=== PATIENT | male | born 1945 | race Caucasian/White ===

== ENCOUNTER 2017-01-15 12:44 | Emergency (ER) | payer OTHER ==
[~2017-01-15] VITALS: Ht 182.8 cm; Wt 83.9 kg
[~2017-01-15 12:44] MED LIST: AMOXICILLIN500 MG PO; ANTIBIOTIC O500 U/GM TP; ANUSOL-HC25 MG RC; APAP/OXYCODONE1 TA2 PO; ASPIR-TRIN325 MG PO; ASPIRIN ADULT L81 M1 PO; ASPIRIN CHEWABL81 M1 PO; ASPIRIN81 M1 PO; ATARAX25 MG PO; ATENOLOL25 MG PO; ATIVAN0.5 MG PO; ATIVAN1 MG PO; B-1100 MG PO; B12,B-12,B 12500 MC1 PO; BACTRIM DS 8001 TA1 PO; BACTROBAN OINT22 GM PO; CELEXA20 MG PO; CELEXA40 MG PO; CEPHALEXIN500 M1 PO; CIPRO XR500 MG PO; CIPRO250 MG PO; CIPRO500 MG PO; CIPRODEX 0.3%-7.5 ML OT; CITALOPRAM20 MG PO; CLARITIN10 MG PO; CLINDAMYCIN HC300 MG PO; CLINDAMYCIN300 MG PO; DARVOCET N 1001 TAB PO; DAYPRO600 M1 PO; DIFLUCAN100 MG PO; FIORICET 325 MG1 TAB PO; FIORINAL 325 MG1 CAP PO; FLEXERIL10 MG PO; FLEXERIL5 MG PO; FLOMAX0.4 MG PO; FLUCONAZOLE100 MG PO; Feosol300 MG PO; GABAPENTIN300 MG PO; HYDROCODONE BIT1 T11 PO; KEFLEX500 M1 PO; KEFLEX500 MG PO; KENALOG 0.1%80 GM T; LIDODERM 5% PATC1 EA T; LIPITOR40 MG PO; LOPRESSOR25 MG PO; MOTRIN800 MG PO; NEURONTIN300 MG PO; NEURONTIN600 MG PO; NYSTATIN CREAM15 GM T; Nystatin Cream15 GM T; OMEPRAZOLE MAGN20 MG PO; OMEPRAZOLE20 MG PO; PEN-VEE K500 MG PO; PERCOCET 325 MG1 TA2 PO; PERCOCET 325 MG1 TA3 PO; PERCOCET 325 MG1 TA7 PO; PERPHENAZINE4 MG PO; PREDNICOT20 MG PO; PREDNISONE20 MG PO; PREPARATION H R; PRILOSEC10 MG PO; PRILOSEC20 M1 PO; PRILOSEC20 MG PO; PRILOSEC40 MG PO; PROTONIX40 MG PO; ROBAXIN750 MG PO; SINEX NASAL SPRAY NAS; TENORMIN50 MG; TRAMADOL HCL50 MG PO; TRAZADONE HYDR100 MG PO; TRAZODONE150 MG PO; TRAZODONE50 MG PO; TRIMOX500 MG PO; TUCKS R; VIBRAMYCIN100 MG PO; VICODIN 5/500 505 MG PO; VICODIN 500 MG-1 TAB PO; VICODIN ES 7501 TAB PO; VITAMIN D22000 UNIT PO; VOLTAREN50 M1 PO; Vicodin 5/500 505 MG PO; XYLOCAINE35 GM T; ZANTAC 300300 MG PO; ZOFRAN ODT8 MG PO; ZYVOX600 MG PO
[2017-01-15 12:54] VITALS: BP 138/77
[2017-01-15 13:12] LABS: BASO % 0.2 % (0.0-1.0); EOS # 0.2 10*3/uL (0.0-0.4); EOS % 2.3 % (1.0-4.0); HEMATOCRIT 42.4 % (42.0-52.0); HEMOGLOBIN 13.8 g/dl (14.0-18.0); IG # 0.1 10*3/uL (0.0-0.1); LYMPH # 1.2 10*3/uL (1.3-4.4); LYMPH % 13.5 % (27.0-41.0); MEAN CELL VOLUME 90.8 fl (80.0-94.0); MEAN CORPUSCULAR HGB 29.6 pg (27.0-31.0); MEAN CORPUSCULAR HGB CONC 32.5 g/dl (33.0-37.0); MEAN PLATELET VOLUME 9.5 fl (9.6-12.3); MONO # 0.6 10*3/uL (0.1-1.0); NEUT # 6.5 10*3/uL (2.3-7.9); NEUT % 76.3 % (47.0-73.0); PLATELET COUNT AUTOMATED 193 10*3/uL (130-400); RED BLOOD COUNT 4.67 10*6/uL (4.50-5.90); RED CELL DISTRI WIDTH 14.5 % (0-14.5); WHITE BLOOD COUNT 8.6 10*3/uL (4.8-10.8)
[2017-01-15 13:28] LABS: ALBUMIN 3.3 gm/dl (3.1-4.5); ALKALINE PHOSPHATASE 103 U/L (45-117); BILIRUBIN, TOTAL 0.4 mg/dl (0.2-1.0); BUN 17 mg/dl (7-24); CARBON DIOXIDE 27 mmol/L (21-32); CHLORIDE 109 mmol/L (98-107); EST GLOM FILT AFRICAN AMERICAN > 60 ml/min; GLUCOSE 98 mg/dL (65-99); POTASSIUM 3.8 mmol/L (3.5-5.1); SGOT/AST 15 IU/L (3-35); SGPT/ALT 13 U/L (12-78); SODIUM 143 mmol/L (136-145); TOTAL PROTEIN 6.8 gm/dL (6.4-8.2)
== END 2017-01-15 14:36 | disposition home or self-care (01) ==
LOC: ED 12:44
PROVIDERS: Nurse Practitioner Family
DX: S70.01XA Contusion of right hip, initial encounter (principal); F17.200 Nicotine dependence, unspecified, uncomplicated; Z95.5 Presence of coronary angioplasty implant and graft; Z90.49 Acquired absence of other specified parts of digestive tract; Z88.6 Allergy status to analgesic agent; W18.30XA Fall on same level, unspecified, initial encounter; Y93.89 Activity, other specified; Y92.9 Unspecified place or not applicable; Y99.9 Unspecified external cause status

== ENCOUNTER 2017-02-22 16:40 | Emergency (ER) | payer OTHER ==
[2017-02-22 16:40] VITALS: BP 116/85
== END 2017-02-22 18:54 | disposition left against medical advice (07) ==
LOC: ED 16:40
DX: S81.011A Laceration without foreign body, right knee, initial encounter (principal); S50.12XA Contusion of left forearm, initial encounter; F17.200 Nicotine dependence, unspecified, uncomplicated; F41.9 Anxiety disorder, unspecified; I25.10 Atherosclerotic heart disease of native coronary artery without angina pectoris; F32.9 Major depressive disorder, single episode, unspecified; K21.9 Gastro-esophageal reflux disease without esophagitis; Z95.5 Presence of coronary angioplasty implant and graft; Z90.49 Acquired absence of other specified parts of digestive tract; Z88.6 Allergy status to analgesic agent; Z79.899 Other long term (current) drug therapy; W18.30XA Fall on same level, unspecified, initial encounter; Y93.89 Activity, other specified; Y92.9 Unspecified place or not applicable; Y99.9 Unspecified external cause status

== ENCOUNTER 2017-07-01 21:06 | Emergency (ER) | payer OTHER ==
[~2017-07-01] VITALS: Ht 185.4 cm; Wt 81.6 kg
[2017-07-01 21:22] VITALS: BP 135/81
[2017-07-01] MEDS ORDERED: KEFLEX500 M1 PO (22:37)
== END 2017-07-01 23:58 | disposition home or self-care (01) ==
LOC: ED 21:06
DX: S51.822A Laceration with foreign body of left forearm, initial encounter (principal); L03.114 Cellulitis of left upper limb; Z88.6 Allergy status to analgesic agent; Z79.899 Other long term (current) drug therapy; W25.XXXA Contact with sharp glass, initial encounter; Y93.89 Activity, other specified; Y92.89 Other specified places as the place of occurrence of the external cause; Y99.8 Other external cause status

== ENCOUNTER 2017-07-06 08:47 | Emergency (ER) | payer OTHER ==
[~2017-07-06] VITALS: Ht 182.8 cm; Wt 86.2 kg
[2017-07-06 09:01] VITALS: BP 153/92
[2017-07-06] MEDS ORDERED: CEPHALEXIN500 M1 PO (10:43)
== END 2017-07-06 10:54 | disposition home or self-care (01) ==
LOC: ED 08:47
DX: S70.351A Superficial foreign body, right thigh, initial encounter (principal); F17.200 Nicotine dependence, unspecified, uncomplicated; Z90.49 Acquired absence of other specified parts of digestive tract; Z96.651 Presence of right artificial knee joint; Z95.5 Presence of coronary angioplasty implant and graft; Z98.42 Cataract extraction status, left eye; Z98.41 Cataract extraction status, right eye; Z79.899 Other long term (current) drug therapy; Z88.6 Allergy status to analgesic agent; X58.XXXA Exposure to other specified factors, initial encounter; Y93.89 Activity, other specified; Y92.89 Other specified places as the place of occurrence of the external cause; Y99.9 Unspecified external cause status

== ENCOUNTER 2017-07-31 22:02 | Inpatient (IN) | payer OTHER ==
[~2017-07-31] VITALS: Ht 180.3 cm; Wt 63.3 kg
[2017-07-31 22:17] VITALS: BP 166/93
[2017-07-31 22:33] VITALS: BP 152/91
--- NOTE | 2017-07-31 22:33 | NUR ---
PT STATES PAIN WENT FROM 7 TO A 5 OUT OF 10 AFTER 1ST NITRO SL
--- NOTE | 2017-07-31 22:34 | NUR ---
2ND NITRO 0.4 SL ADMINISTERED FOR PAIN /10
[2017-07-31 23:20] LABS: BASO % 0.6 % (0.0-1.0); EOS # 0.2 10*3/uL (0.0-0.4); EOS % 2.7 % (1.0-4.0); HEMATOCRIT 44.3 % (42.0-52.0); HEMOGLOBIN 14.9 g/dl (14.0-18.0); LYMPH # 2.1 10*3/uL (1.3-4.4); LYMPH % 29.4 % (27.0-41.0); MEAN CELL VOLUME 88.8 fl (80.0-94.0); MEAN CORPUSCULAR HGB 29.9 pg (27.0-31.0); MEAN CORPUSCULAR HGB CONC 33.6 g/dl (33.0-37.0); MEAN PLATELET VOLUME 9.7 fl (9.6-12.3); MONO # 0.5 10*3/uL (0.1-1.0); MONO % 7.6 % (3.0-9.0); NEUT # 4.2 10*3/uL (2.3-7.9); NEUT % 59.6 % (47.0-73.0); PLATELET COUNT AUTOMATED 239 10*3/uL (130-400); RED BLOOD COUNT 4.99 10*6/uL (4.50-5.90); RED CELL DISTRI WIDTH 14.5 % (0-14.5)
--- NOTE | 2017-07-31 23:22 | NUR ---
PATIENT STATED AFTER NITRO X 2 PAIN DECREASED TO 1/10
[2017-07-31 23:30] VITALS: BP 119/76
[2017-07-31 23:30] LABS: ACT PARTIAL THROMBO TIME 22.6 SECONDS (20.8-31.5); INTERNATIONAL NORM RATIO 1.1 (2.0-3.5)
[2017-07-31 23:37] LABS: ALBUMIN 3.2 gm/dl (3.1-4.5); ALKALINE PHOSPHATASE 82 U/L (45-117); BUN 14 mg/dl (7-24); CHLORIDE 111 mmol/L (98-107); CREATININE 0.66 mg/dL (0.70-1.30); POTASSIUM 4.1 mmol/L (3.5-5.1); SGOT/AST 10 IU/L (3-35); SGPT/ALT 15 U/L (12-78); SODIUM 144 mmol/L (136-145); TOTAL PROTEIN 6.5 gm/dL (6.4-8.2)
[2017-07-31 23:49] LABS: TROPONIN I < 0.015 ng/ml (<0.045)
--- NOTE | 2017-08-01 01:00 | NUR ---
A 72, admitted to , under the services of ELADIO Belcher DO with a diagnosis of CHEST PAIN. Chief complaint is CHEST PAIN STARTING SINCE YESTERDAY. Patient arrived via stretcher from ER. Monitor applied. Initial assessment completed. Vital signs taken and recorded. ELADIO BELCHER DO notified of admission to the unit. Orders received. See assessment for past medical history, medications and allergies. Patient and/or family oriented to unit. [facility] visitation policy reviewed. Clothing/patient valuable form completed. PATY VALENTE
--- NOTE | 2017-08-01 01:15 | NUR ---
MEDICATION LIST REVIEWED WITH PATIENT . ANTIBIOTICS WERE COMPLETED. PATIENT STATED HE HAS NOT BEEN TAKING VIT D AND B DUE TO BEING OUT OF THEM AND CANNOT AFFORD THEM AT PRESENT TIME
--- NOTE | 2017-08-01 03:00 | NUR ---
BP 120/62 AFTER 1.25 LOPRESSOR 1V.
[2017-08-01 04:30] LABS: BASO # 0.1 10*3/uL (0.0-0.1); BASO % 0.7 % (0.0-1.0); EOS # 0.3 10*3/uL (0.0-0.4); EOS % 3.5 % (1.0-4.0); HEMATOCRIT 42.9 % (42.0-52.0); HEMOGLOBIN 14.5 g/dl (14.0-18.0); LYMPH # 2.4 10*3/uL (1.3-4.4); LYMPH % 32.7 % (27.0-41.0); MEAN CELL VOLUME 88.6 fl (80.0-94.0); MEAN CORPUSCULAR HGB CONC 33.8 g/dl (33.0-37.0); MEAN PLATELET VOLUME 9.5 fl (9.6-12.3); MONO # 0.6 10*3/uL (0.1-1.0); MONO % 8.6 % (3.0-9.0); NEUT % 54.1 % (47.0-73.0); PLATELET COUNT AUTOMATED 221 10*3/uL (130-400); RED BLOOD COUNT 4.84 10*6/uL (4.50-5.90); RED CELL DISTRI WIDTH 14.5 % (0-14.5); WHITE BLOOD COUNT 7.4 10*3/uL (4.8-10.8)
[2017-08-01 04:42] LABS: BUN 15 mg/dl (7-24); CHLORIDE 111 mmol/L (98-107); CREATININE 0.72 mg/dL (0.70-1.30); POTASSIUM 3.8 mmol/L (3.5-5.1); SODIUM 144 mmol/L (136-145)
[2017-08-01 04:46] LABS: CHOLESTEROL 102 mg/dL (<200); HDL CHOLESTEROL 42 mg/dl (40-60); LDL CHOLESTEROL 47 mg/dL (9-159); PHOSPHOROUS 3.2 mg/dL (2.5-4.9); TRIGLYCERIDES 66 mg/dl (<150); VLDL CHOLESTEROL 13 mg/dL (6-40)
[2017-08-01 04:53] LABS: THYROID STIM HORMONE (HS) 0.382 uIU/ml (0.358-4.75)
--- NOTE | 2017-08-01 06:38 | NUR ---
MESSAGE LEFT WITH CARDIOLOGY FOR DR. VIGIL REGARDING CONSULT ORDER.
--- NOTE | 2017-08-01 06:45 | NUR ---
DR. VIGIL RETURNED CALL. NOTIFIED OF CONSULT. STATED TO CALL IF ANY PROBLEMS. WILL BE IN LATER TO SEE PATIENT.
--- NOTE | 2017-08-01 07:45 | NUR ---
Shift chart check completed.
[2017-08-01 08:00] VITALS: BP 138/82
--- NOTE | 2017-08-01 09:25 | NUR ---
PATIENT C/O OF CHEST PAIN. STATED "THEY GAVE ME MORPHINE THE LAST TIME I WAS IN HERE AND IT HELPED." CONTACTED DR. LOPEZ, SEE NEW ORDERS.
--- NOTE | 2017-08-01 09:28 | NUR ---
CALLED [facility] TO VERIFY HOME MEDICATIONS. THE ONLY ONE PATIENT GETS FILLED THERE IS GABAPENTIN 300MG T.I.D. OTHER MEDICATIONS COME [facility] AND THE CLINIC IS CLOSED ON THE WEEKENDS.
--- NOTE | 2017-08-01 10:00 | NUR ---
ONE TIME DOSE OF MORPHINE GIVEN FOR PATIENTS C/O CHEST PAIN 05/14. WILL MONITOR.
--- NOTE | 2017-08-01 10:45 | NUR ---
MORPHINE EFFECTIVE, PATIENT SATISFIED.
[2017-08-01 12:00] VITALS: BP 118/90
--- NOTE | 2017-08-01 14:41 | NUR ---
SPOKE WITH DR. LOPEZ PER PATIENT REQUEST FOR SOMETHING FOR ANXIETY. HE SAID "IM JUMPING OUT OF MY SKIN AND GOING CRAZY IN HERE!"
--- NOTE | 2017-08-01 15:10 | NUR ---
SL NITROSTAT GIVEN FOR PATIENT C/O CHEST PAIN RATED 4/10. ONE TIME DOSE VISTARIL GIVEN FOR PATIENTS C/O ANXIETY. WILL MONITOR.
--- NOTE | 2017-08-01 15:15 | NUR ---
SL NITROSTAT EFFECTIVE. PATIENT STATES HE DOESN'T HAVE ANY CHEST PAIN.
[2017-08-01 16:00] VITALS: BP 90/57
--- NOTE | 2017-08-01 16:52 | NUR ---
SPOKE WITH DR. LOPEZ REGARDING PATIENTS CONTINUED C/O ANXIETY, THE NEED FOR NICOTINE PATCH, AND MORPHINE FOR PAIN. SEE NEW ORDERS.
--- NOTE | 2017-08-01 17:45 | NUR ---
PRN MORPHINE GIVEN FOR C/O ANXIETY THAT LEADS TO INCREASE CHEST PAIN. WILL MONITOR.
--- NOTE | 2017-08-01 18:15 | NUR ---
MORPHINE EFFECTIVE. PATIENT ASLEEP WITH RESPIRATIONS >12
[2017-08-01 20:00] VITALS: BP 99/56
--- NOTE | 2017-08-01 23:55 | NUR ---
PATIENT C/O CHEST PAIN AND INABILITY TO RELAX AND SLEEP. PATIENT RATING PAIN A 4/10 WITH 10 BEING THE WORST. STATING PAIN COMES AND GOES. DENIES NEED FOR VISARIL 0R NITRO. PATIENT MEDICATED WITH MORPHINE PER PATIENT REQUEST. REINFORCED USE OF CALL LIGHT. WILL CONTINUE TO MONITOR.
[2017-08-02] VITALS: BP 94/64
[2017-08-02 06:27] LABS: BASO # 0.1 10*3/uL (0.0-0.1); BASO % 0.6 % (0.0-1.0); EOS # 0.3 10*3/uL (0.0-0.4); EOS % 3.7 % (1.0-4.0); HEMATOCRIT 40.5 % (42.0-52.0); HEMOGLOBIN 13.6 g/dl (14.0-18.0); LYMPH # 2.9 10*3/uL (1.3-4.4); LYMPH % 32.6 % (27.0-41.0); MEAN CELL VOLUME 89.6 fl (80.0-94.0); MEAN CORPUSCULAR HGB 30.1 pg (27.0-31.0); MEAN CORPUSCULAR HGB CONC 33.6 g/dl (33.0-37.0); MEAN PLATELET VOLUME 9.6 fl (9.6-12.3); MONO # 0.7 10*3/uL (0.1-1.0); MONO % 7.8 % (3.0-9.0); NEUT # 4.8 10*3/uL (2.3-7.9); NEUT % 54.7 % (47.0-73.0); PLATELET COUNT AUTOMATED 203 10*3/uL (130-400); RED BLOOD COUNT 4.52 10*6/uL (4.50-5.90); RED CELL DISTRI WIDTH 14.5 % (0-14.5); WHITE BLOOD COUNT 8.7 10*3/uL (4.8-10.8)
[2017-08-02 06:56] LABS: ALBUMIN 2.8 gm/dl (3.1-4.5); ALKALINE PHOSPHATASE 74 U/L (45-117); BUN 21 mg/dl (7-24); CHLORIDE 110 mmol/L (98-107); CREATININE 0.77 mg/dL (0.70-1.30); POTASSIUM 4.1 mmol/L (3.5-5.1); SGOT/AST 8 IU/L (3-35); SGPT/ALT 13 U/L (12-78); SODIUM 140 mmol/L (136-145); TOTAL PROTEIN 5.9 gm/dL (6.4-8.2)
--- NOTE | 2017-08-02 07:45 | NUR ---
PT YELLING & DEMANDING "MY MORPHINE" WHEN QUESTIONED REGARDING PAIN, PT POINTS TO MIDSTERNAL CHEST. NO S.O.B NOTED. PT DENIES NAUSEA STATING "I ORDERED BREAKFAST OVER AN HOUR AGO, WHY IS THIS PLACE SO SLOW" PT IS IN OBVIOUS DISTRESS, VSS & CHARTED. MEDICATED IV SLOWLY ORDERED PER PT REQUEST WITH MORPHINE, PT RATES PAIN /10. SEE EMAR.
[2017-08-02 08:00] VITALS: BP 118/76
--- NOTE | 2017-08-02 09:30 | NUR ---
PT STATES MEDICATION EFFECTIVE, DOZING INTERMITTENTLY. WILL CONTINUE TO MONITOR.
[2017-08-02 12:00] VITALS: BP 141/72
--- NOTE | 2017-08-02 12:30 | NUR ---
DR VIGIL IN TO SEE PT.
--- NOTE | 2017-08-02 13:01 | NUR ---
PT AMBULATORY IN HALLS WITH CRUTCHES.
[2017-08-02] MEDS ORDERED: TOPROL XL50 M1 PO (14:19)
[2017-08-02] MEDS ORDERED: IMDUR SA60 M1 PO (14:19)
[2017-08-02] MEDS ORDERED: ASPIRIN ADULT L81 M2 PO (14:19)
[2017-08-02] MEDS ORDERED: ATORVASTATIN CA40 M1 PO (14:19)
[2017-08-02] MEDS ORDERED: ATARAX,VISTARIL50 MG PO (14:19)
== END 2017-08-02 15:10 | disposition home or self-care (01) | DRG 880 ==
LOC: ED 22:02 → EDHOLD 08-01 00:05 → 5E 08-01 00:12
PROVIDERS: Internal Medicine; Student in an Organized Health Care Education/Training Program; ADMIT Internal Medicine
DX: F41.9 Anxiety disorder, unspecified (principal); E44.1 Mild protein-calorie malnutrition; E87.8 Other disorders of electrolyte and fluid balance, not elsewhere classified; E11.9 Type 2 diabetes mellitus without complications; Z68.1 Body mass index [BMI] 19.9 or less, adult; K21.9 Gastro-esophageal reflux disease without esophagitis; E83.41 Hypermagnesemia; R07.89 Other chest pain; I10 Essential (primary) hypertension; I25.118 Atherosclerotic heart disease of native coronary artery with other forms of angina pectoris; F43.10 Post-traumatic stress disorder, unspecified; G47.00 Insomnia, unspecified; E78.5 Hyperlipidemia, unspecified; E78.00 Pure hypercholesterolemia, unspecified; Z96.651 Presence of right artificial knee joint; F32.9 Major depressive disorder, single episode, unspecified; Z82.49 Family history of ischemic heart disease and other diseases of the circulatory system; Z72.0 Tobacco use; Z71.6 Tobacco abuse counseling; Z79.899 Other long term (current) drug therapy; Z88.8 Allergy status to other drugs, medicaments and biological substances; Z98.61 Coronary angioplasty status; Z89.612 Acquired absence of left leg above knee; Z98.42 Cataract extraction status, left eye; Z98.41 Cataract extraction status, right eye; Z90.49 Acquired absence of other specified parts of digestive tract; Z82.3 Family history of stroke; Z83.3 Family history of diabetes mellitus

== ENCOUNTER 2017-08-21 15:19 | Inpatient (IN) | payer OTHER ==
[~2017-08-21] VITALS: Ht 182.8 cm; Wt 63.6 kg
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
[~2017-08-21 15:19] MED LIST changes: +ASPIRIN ADULT L81 M2 PO; +ATARAX,VISTARIL50 MG PO; +ATORVASTATIN CA40 M1 PO; +IMDUR SA60 M1 PO; +TOPROL XL50 M1 PO
[2017-08-21 15:31] VITALS: BP 144/93
[2017-08-21 15:37] LABS: BASO % 0.4 % (0.0-1.0); EOS # 0.1 10*3/uL (0.0-0.4); EOS % 0.6 % (1.0-4.0); HEMATOCRIT 45.4 % (42.0-52.0); HEMOGLOBIN 15.7 g/dl (14.0-18.0); LYMPH # 1.5 10*3/uL (1.3-4.4); LYMPH % 16.9 % (27.0-41.0); MEAN CELL VOLUME 86.3 fl (80.0-94.0); MEAN CORPUSCULAR HGB 29.8 pg (27.0-31.0); MEAN CORPUSCULAR HGB CONC 34.6 g/dl (33.0-37.0); MEAN PLATELET VOLUME 9.2 fl (9.6-12.3); MONO # 0.4 10*3/uL (0.1-1.0); NEUT # 6.9 10*3/uL (2.3-7.9); NEUT % 77.8 % (47.0-73.0); PLATELET COUNT AUTOMATED 302 10*3/uL (130-400); RED BLOOD COUNT 5.26 10*6/uL (4.50-5.90); RED CELL DISTRI WIDTH 13.5 % (0-14.5); WHITE BLOOD COUNT 8.9 10*3/uL (4.8-10.8)
[2017-08-21 15:46] LABS: ACT PARTIAL THROMBO TIME 24.5 SECONDS (20.8-31.5); INTERNATIONAL NORM RATIO 1.1 (2.0-3.5)
[2017-08-21 15:54] LABS: ALBUMIN 3.6 gm/dl (3.1-4.5); ALKALINE PHOSPHATASE 99 U/L (45-117); BUN 13 mg/dl (7-24); CHLORIDE 105 mmol/L (98-107); CREATININE 0.89 mg/dL (0.70-1.30); POTASSIUM 3.6 mmol/L (3.5-5.1); SGOT/AST 11 IU/L (3-35); SGPT/ALT 20 U/L (12-78); SODIUM 138 mmol/L (136-145); TOTAL PROTEIN 7.4 gm/dL (6.4-8.2)
[2017-08-21 15:55] LABS: TROPONIN I < 0.015 ng/ml (<0.045)
[2017-08-21 16:49] VITALS: BP 165/89
[2017-08-21 20:00] VITALS: BP 148/81
[2017-08-22] VITALS: BP 118/75
[2017-08-22 06:01] LABS: BASO % 0.7 % (0.0-1.0); EOS # 0.3 10*3/uL (0.0-0.4); EOS % 4.3 % (1.0-4.0); HEMATOCRIT 42.4 % (42.0-52.0); HEMOGLOBIN 14.4 g/dl (14.0-18.0); LYMPH # 2.1 10*3/uL (1.3-4.4); LYMPH % 35.1 % (27.0-41.0); MEAN CELL VOLUME 87.8 fl (80.0-94.0); MEAN CORPUSCULAR HGB 29.8 pg (27.0-31.0); MEAN PLATELET VOLUME 9.5 fl (9.6-12.3); MONO # 0.4 10*3/uL (0.1-1.0); NEUT # 3.2 10*3/uL (2.3-7.9); NEUT % 52.6 % (47.0-73.0); PLATELET COUNT AUTOMATED 264 10*3/uL (130-400); RED BLOOD COUNT 4.83 10*6/uL (4.50-5.90); RED CELL DISTRI WIDTH 13.8 % (0-14.5); WHITE BLOOD COUNT 6.1 10*3/uL (4.8-10.8)
[2017-08-22 06:29] LABS: ALBUMIN 2.9 gm/dl (3.1-4.5); ALKALINE PHOSPHATASE 88 U/L (45-117); BUN 19 mg/dl (7-24); CHLORIDE 107 mmol/L (98-107); CHOLESTEROL 118 mg/dL (<200); CREATININE 0.77 mg/dL (0.70-1.30); HDL CHOLESTEROL 46 mg/dl (40-60); LDL CHOLESTEROL 50 mg/dL (9-159); PHOSPHOROUS 4.4 mg/dL (2.5-4.9); POTASSIUM 3.8 mmol/L (3.5-5.1); SGOT/AST 11 IU/L (3-35); SGPT/ALT 17 U/L (12-78); SODIUM 142 mmol/L (136-145); TOTAL PROTEIN 6.4 gm/dL (6.4-8.2); TRIGLYCERIDES 109 mg/dl (<150); VLDL CHOLESTEROL 22 mg/dL (6-40)
[2017-08-22 06:32] LABS: ACT PARTIAL THROMBO TIME 24.5 SECONDS (20.8-31.5); INTERNATIONAL NORM RATIO 1.1 (2.0-3.5)
[2017-08-22 08:00] VITALS: BP 120/68
[2017-08-22 12:00] VITALS: BP 100/60
[2017-08-22 16:00] VITALS: BP 95/54
== END 2017-08-22 17:19 | disposition short-term general hospital (02) | DRG 303 ==
LOC: ED 15:19 → EDHOLD 15:56 → 5E 16:28
PROVIDERS: Emergency Medicine; Registered Nurse; ADMIT Internal Medicine
DX: I25.110 Atherosclerotic heart disease of native coronary artery with unstable angina pectoris (principal); E83.41 Hypermagnesemia; Z89.612 Acquired absence of left leg above knee; E78.5 Hyperlipidemia, unspecified; I10 Essential (primary) hypertension; K21.9 Gastro-esophageal reflux disease without esophagitis; F17.210 Nicotine dependence, cigarettes, uncomplicated; F41.9 Anxiety disorder, unspecified; Z96.651 Presence of right artificial knee joint; F32.9 Major depressive disorder, single episode, unspecified; G47.00 Insomnia, unspecified; F43.10 Post-traumatic stress disorder, unspecified; Z98.42 Cataract extraction status, left eye; Z98.41 Cataract extraction status, right eye; Z90.49 Acquired absence of other specified parts of digestive tract; Z82.3 Family history of stroke; Z82.49 Family history of ischemic heart disease and other diseases of the circulatory system; Z95.818 Presence of other cardiac implants and grafts; I25.2 Old myocardial infarction; Z79.899 Other long term (current) drug therapy; Z88.8 Allergy status to other drugs, medicaments and biological substances; Z72.89 Other problems related to lifestyle; Z79.82 Long term (current) use of aspirin; Z71.6 Tobacco abuse counseling

== ENCOUNTER 2017-11-29 10:52 | Inpatient (IN) | payer OTHER ==
[~2017-11-29] VITALS: Ht 185.4 cm; Wt 65.6 kg
[2017-11-29 10:57] VITALS: BP 176/89
[2017-11-29 11:30] LABS: BASO % 0.2 % (0.0-1.0); EOS # 0.1 10*3/uL (0.0-0.4); EOS % 0.4 % (1.0-4.0); HEMATOCRIT 50.6 % (42.0-52.0); LYMPH # 1.5 10*3/uL (1.3-4.4); LYMPH % 12.2 % (27.0-41.0); MEAN CELL VOLUME 86.2 fl (80.0-94.0); MEAN CORPUSCULAR HGB CONC 33.6 g/dl (33.0-37.0); MEAN PLATELET VOLUME 9.3 fl (9.6-12.3); MONO # 0.3 10*3/uL (0.1-1.0); MONO % 2.8 % (3.0-9.0); NEUT # 10.4 10*3/uL (2.3-7.9); PLATELET COUNT AUTOMATED 301 10*3/uL (130-400); RED BLOOD COUNT 5.87 10*6/uL (4.50-5.90); RED CELL DISTRI WIDTH 14.3 % (0-14.5); WHITE BLOOD COUNT 12.3 10*3/uL (4.8-10.8)
[2017-11-29 11:45] LABS: ALKALINE PHOSPHATASE 88 U/L (45-117); BUN 11 mg/dl (7-24); CHLORIDE 107 mmol/L (98-107); CREATININE 0.84 mg/dL (0.70-1.30); POTASSIUM 3.9 mmol/L (3.5-5.1); SGOT/AST 14 IU/L (3-35); SGPT/ALT 20 U/L (12-78); SODIUM 140 mmol/L (136-145); TOTAL PROTEIN 7.9 gm/dL (6.4-8.2)
[2017-11-29 11:53] VITALS: BP 168/89
[2017-11-29 12:10] LABS: LIPASE 95 U/L (73-393)
[2017-11-29 14:20] VITALS: BP 163/86
[2017-11-29 16:00] VITALS: BP 111/56; BP 154/85
[2017-11-29 18:22] LABS: BILIRUBIN NEGATIVE (NEGATIVE); BLOOD NEGATIVE (NEGATIVE); CLARITY CLEAR (CLEAR); COLOR YELLOW (YELLOW); GLUCOSE NEGATIVE (NEGATIVE); KETONE TRACE (NEGATIVE); LEUKO ESTERASE NEGATIVE (NEGATIVE); NITRITE NEGATIVE (NEGATIVE); UROBILINOGEN 0.2 E.U./dl (0.2-1.0)
[2017-11-29 18:29] LABS: WBC 0-2 wbc/hpf (0-5)
[2017-11-29 20:00] VITALS: BP 146/73
[2017-11-30] VITALS: BP 136/74
[2017-11-30 06:03] LABS: ALKALINE PHOSPHATASE 66 U/L (45-117); BUN 8 mg/dl (7-24); CHLORIDE 110 mmol/L (98-107); CHOLESTEROL 112 mg/dL (<200); CREATININE 0.69 mg/dL (0.70-1.30); HDL CHOLESTEROL 44 mg/dl (40-60); LDL CHOLESTEROL 58 mg/dL (9-159); PHOSPHOROUS 2.6 mg/dL (2.5-4.9); POTASSIUM 3.5 mmol/L (3.5-5.1); SGOT/AST 9 IU/L (3-35); SGPT/ALT 17 U/L (12-78); SODIUM 141 mmol/L (136-145); TRIGLYCERIDES 52 mg/dl (<150); VLDL CHOLESTEROL 10 mg/dL (6-40)
[2017-11-30 06:08] LABS: THYROID STIM HORMONE (HS) 0.864 uIU/ml (0.358-4.75)
[2017-11-30 06:11] LABS: BASO % 0.4 % (0.0-1.0); EOS # 0.2 10*3/uL (0.0-0.4); EOS % 2.7 % (1.0-4.0); HEMATOCRIT 40.4 % (42.0-52.0); HEMOGLOBIN 13.9 g/dl (14.0-18.0); LYMPH # 2.6 10*3/uL (1.3-4.4); MEAN CELL VOLUME 86.3 fl (80.0-94.0); MEAN CORPUSCULAR HGB 29.7 pg (27.0-31.0); MEAN CORPUSCULAR HGB CONC 34.4 g/dl (33.0-37.0); MEAN PLATELET VOLUME 9.5 fl (9.6-12.3); MONO # 0.7 10*3/uL (0.1-1.0); MONO % 7.8 % (3.0-9.0); NEUT # 4.8 10*3/uL (2.3-7.9); NEUT % 57.6 % (47.0-73.0); PLATELET COUNT AUTOMATED 249 10*3/uL (130-400); RED BLOOD COUNT 4.68 10*6/uL (4.50-5.90); RED CELL DISTRI WIDTH 14.4 % (0-14.5); WHITE BLOOD COUNT 8.3 10*3/uL (4.8-10.8)
[2017-11-30 06:20] LABS: ACT PARTIAL THROMBO TIME 22.5 SECONDS (20.8-31.5); INTERNATIONAL NORM RATIO 1.1 (2.0-3.5)
[2017-11-30 08:00] VITALS: BP 133/78
[2017-11-30 08:10] LABS: VITAMIN D, 25-HYDROXY 19.2 ng/mL (30-100)
[2017-11-30] MEDS ORDERED: ALKA-SELTZER H1 EAC1 PO (10:15)
[2017-11-30] MEDS ORDERED: FLONASE ALLERG9.9 ML NAS (10:16)
[2017-11-30 12:00] VITALS: BP 147/80
[2017-11-30 16:00] VITALS: BP 148/79
[2017-11-30 20:00] VITALS: BP 113/70
[2017-12-01] VITALS: BP 122/75
[2017-12-01] MEDS ORDERED: TENORMIN50 MG PO (02:34)
[2017-12-01 07:09] LABS: BASO % 0.6 % (0.0-1.0); EOS # 0.3 10*3/uL (0.0-0.4); EOS % 4.9 % (1.0-4.0); HEMATOCRIT 41.6 % (42.0-52.0); HEMOGLOBIN 13.8 g/dl (14.0-18.0); LYMPH # 2.1 10*3/uL (1.3-4.4); LYMPH % 30.9 % (27.0-41.0); MEAN CELL VOLUME 86.7 fl (80.0-94.0); MEAN CORPUSCULAR HGB 28.8 pg (27.0-31.0); MEAN CORPUSCULAR HGB CONC 33.2 g/dl (33.0-37.0); MEAN PLATELET VOLUME 9.8 fl (9.6-12.3); MONO # 0.5 10*3/uL (0.1-1.0); MONO % 7.5 % (3.0-9.0); NEUT # 3.8 10*3/uL (2.3-7.9); NEUT % 55.7 % (47.0-73.0); PLATELET COUNT AUTOMATED 225 10*3/uL (130-400); RED CELL DISTRI WIDTH 14.3 % (0-14.5); WHITE BLOOD COUNT 6.8 10*3/uL (4.8-10.8)
[2017-12-01 07:28] LABS: ALBUMIN 2.8 gm/dl (3.1-4.5); ALKALINE PHOSPHATASE 67 U/L (45-117); CHLORIDE 111 mmol/L (98-107); CREATININE 0.68 mg/dL (0.70-1.30); POTASSIUM 3.6 mmol/L (3.5-5.1); SGOT/AST 10 IU/L (3-35); SGPT/ALT 15 U/L (12-78); SODIUM 143 mmol/L (136-145); TOTAL PROTEIN 5.6 gm/dL (6.4-8.2)
[2017-12-01 07:34] LABS: BUN 9 mg/dl (7-24)
[2017-12-01 08:00] VITALS: BP 160/80
[2017-12-01 12:00] VITALS: BP 127/66
== END 2017-12-01 15:22 | disposition home or self-care (01) | DRG 392 ==
LOC: ED 10:52 → 5E 13:37 → EDHOLD 13:37 → 5E 13:41
PROVIDERS: Family Medicine; Internal Medicine; Registered Nurse
DX: R11.2 Nausea with vomiting, unspecified (principal); I50.30 Unspecified diastolic (congestive) heart failure; K76.89 Other specified diseases of liver; I11.0 Hypertensive heart disease with heart failure; Z83.3 Family history of diabetes mellitus; E86.0 Dehydration; K52.9 Noninfective gastroenteritis and colitis, unspecified; N28.1 Cyst of kidney, acquired; R73.9 Hyperglycemia, unspecified; E27.9 Disorder of adrenal gland, unspecified; K29.70 Gastritis, unspecified, without bleeding; K21.9 Gastro-esophageal reflux disease without esophagitis; F43.10 Post-traumatic stress disorder, unspecified; F41.9 Anxiety disorder, unspecified; F32.9 Major depressive disorder, single episode, unspecified; Z96.651 Presence of right artificial knee joint; F17.210 Nicotine dependence, cigarettes, uncomplicated; H26.9 Unspecified cataract; G89.29 Other chronic pain; G47.00 Insomnia, unspecified; I25.10 Atherosclerotic heart disease of native coronary artery without angina pectoris; E78.5 Hyperlipidemia, unspecified; K57.30 Diverticulosis of large intestine without perforation or abscess without bleeding; D35.02 Benign neoplasm of left adrenal gland; D35.01 Benign neoplasm of right adrenal gland; E53.8 Deficiency of other specified B group vitamins; E55.9 Vitamin D deficiency, unspecified; Z72.89 Other problems related to lifestyle; Z89.612 Acquired absence of left leg above knee; Z89.522 Acquired absence of left knee; Z87.19 Personal history of other diseases of the digestive system; Z88.8 Allergy status to other drugs, medicaments and biological substances; Z79.899 Other long term (current) drug therapy; Z87.828 Personal history of other (healed) physical injury and trauma; Z90.49 Acquired absence of other specified parts of digestive tract; Z82.49 Family history of ischemic heart disease and other diseases of the circulatory system; Z82.3 Family history of stroke; Z95.5 Presence of coronary angioplasty implant and graft

== ENCOUNTER 2017-12-02 00:53 | Emergency (ER) | payer OTHER ==
[~2017-12-02] VITALS: Ht 172.7 cm; Wt 79.4 kg
[~2017-12-02 00:53] MED LIST changes: +ALKA-SELTZER H1 EAC1 PO; +FLONASE ALLERG9.9 ML NAS; +TENORMIN50 MG PO
[2017-12-02 01:05] VITALS: BP 159/85
[2017-12-02 01:44] LABS: BASO % 0.3 % (0.0-1.0); EOS % 0.4 % (1.0-4.0); HEMOGLOBIN 16.1 g/dl (14.0-18.0); LYMPH % 10.7 % (27.0-41.0); MEAN CELL VOLUME 86.3 fl (80.0-94.0); MEAN CORPUSCULAR HGB 28.8 pg (27.0-31.0); MEAN CORPUSCULAR HGB CONC 33.3 g/dl (33.0-37.0); MEAN PLATELET VOLUME 9.5 fl (9.6-12.3); MONO # 0.4 10*3/uL (0.1-1.0); NEUT # 7.8 10*3/uL (2.3-7.9); NEUT % 84.3 % (47.0-73.0); PLATELET COUNT AUTOMATED 248 10*3/uL (130-400); WHITE BLOOD COUNT 9.2 10*3/uL (4.8-10.8)
[2017-12-02 01:46] LABS: HEMATOCRIT 48.3 % (42.0-52.0)
[2017-12-02 02:00] LABS: ALBUMIN 3.7 gm/dl (3.1-4.5); ALKALINE PHOSPHATASE 86 U/L (45-117); BUN 9 mg/dl (7-24); CHLORIDE 105 mmol/L (98-107); CREATININE 0.76 mg/dL (0.70-1.30); LIPASE 89 U/L (73-393); POTASSIUM 3.5 mmol/L (3.5-5.1); SGOT/AST 13 IU/L (3-35); SGPT/ALT 19 U/L (12-78); SODIUM 138 mmol/L (136-145); TOTAL PROTEIN 7.5 gm/dL (6.4-8.2)
[2017-12-02 02:05] LABS: TROPONIN I < 0.015 ng/ml (<0.045)
[2017-12-02 03:52] LABS: BILIRUBIN NEGATIVE (NEGATIVE); BLOOD NEGATIVE (NEGATIVE); CLARITY CLEAR (CLEAR); COLOR YELLOW (YELLOW); GLUCOSE NEGATIVE (NEGATIVE); KETONE 1+ (NEGATIVE); LEUKO ESTERASE NEGATIVE (NEGATIVE); NITRITE NEGATIVE (NEGATIVE); PH 6.5 (5.0-9.0); UROBILINOGEN 0.2 E.U./dl (0.2-1.0)
[2017-12-02 04:00] LABS: WBC 0-2 wbc/hpf (0-5)
[2017-12-02 04:01] LABS: URINE AMPHETAMINES < 1000 (1000ng/ml); URINE BARBITURATES < 200 (200ng/ml); URINE BENZODIAZEPINES < 200 (200ng/ml); URINE CANNABINOIDS (THC) < 50 (50ng/ml); URINE COCAINE < 300 (300ng/ml); URINE METHADONE < 300 (300ng/ml); URINE OPIATES > 300 (300ng/ml)
[2017-12-02 04:02] LABS: URINE PHENCYCLIDINE < 25 (25ng/ml)
== END 2017-12-02 05:05 | disposition home or self-care (01) ==
LOC: ED 00:53 → 4E 04:05 → ED 05:05
PROVIDERS: Emergency Medicine Emergency Medical Services
DX: R10.13 Epigastric pain (principal); R11.2 Nausea with vomiting, unspecified; R73.9 Hyperglycemia, unspecified; D72.829 Elevated white blood cell count, unspecified; I25.10 Atherosclerotic heart disease of native coronary artery without angina pectoris; K21.9 Gastro-esophageal reflux disease without esophagitis; E78.5 Hyperlipidemia, unspecified; I50.30 Unspecified diastolic (congestive) heart failure; I11.0 Hypertensive heart disease with heart failure; Z88.6 Allergy status to analgesic agent; Z79.899 Other long term (current) drug therapy

== ENCOUNTER 2018-02-02 21:57 | Emergency (ER) | payer OTHER ==
[~2018-02-02] VITALS: Wt 79.4 kg
[2018-02-02 23:00] VITALS: BP 126/81
[2018-02-02 23:15] LABS: BASO % 0.5 % (0.0-1.0); EOS # 0.2 10*3/uL (0.0-0.4); EOS % 2.6 % (1.0-4.0); HEMOGLOBIN 15.1 g/dl (14.0-18.0); LYMPH # 1.7 10*3/uL (1.3-4.4); LYMPH % 20.5 % (27.0-41.0); MEAN CELL VOLUME 88.1 fl (80.0-94.0); MEAN CORPUSCULAR HGB 29.5 pg (27.0-31.0); MEAN CORPUSCULAR HGB CONC 33.6 g/dl (33.0-37.0); MEAN PLATELET VOLUME 9.4 fl (9.6-12.3); MONO # 0.6 10*3/uL (0.1-1.0); MONO % 6.9 % (3.0-9.0); NEUT # 5.9 10*3/uL (2.3-7.9); NEUT % 69.1 % (47.0-73.0); PLATELET COUNT AUTOMATED 239 10*3/uL (130-400); RED BLOOD COUNT 5.11 10*6/uL (4.50-5.90); RED CELL DISTRI WIDTH 13.7 % (0-14.5); WHITE BLOOD COUNT 8.5 10*3/uL (4.8-10.8)
[2018-02-02 23:18] LABS: INTERNATIONAL NORM RATIO 1.1 (2.0-3.5)
[2018-02-02 23:25] LABS: ALBUMIN 3.4 gm/dl (3.1-4.5); ALKALINE PHOSPHATASE 86 U/L (45-117); BUN 15 mg/dl (7-24); CHLORIDE 107 mmol/L (98-107); CREATININE 0.78 mg/dL (0.70-1.30); LIPASE 67 U/L (73-393); POTASSIUM 3.9 mmol/L (3.5-5.1); SGOT/AST 16 IU/L (3-35); SGPT/ALT 21 U/L (12-78); SODIUM 140 mmol/L (136-145)
[2018-02-02 23:28] LABS: TROPONIN I < 0.015 ng/ml (<0.045)
== END 2018-02-03 00:50 | disposition home or self-care (01) ==
LOC: ED 21:57
PROVIDERS: Emergency Medicine Emergency Medical Services
DX: S31.31XA Laceration without foreign body of scrotum and testes, initial encounter (principal); R10.13 Epigastric pain; F17.200 Nicotine dependence, unspecified, uncomplicated; I25.10 Atherosclerotic heart disease of native coronary artery without angina pectoris; K21.9 Gastro-esophageal reflux disease without esophagitis; E78.5 Hyperlipidemia, unspecified; I11.0 Hypertensive heart disease with heart failure; I50.9 Heart failure, unspecified; Z95.5 Presence of coronary angioplasty implant and graft; Z96.651 Presence of right artificial knee joint; Z90.49 Acquired absence of other specified parts of digestive tract; Z98.890 Other specified postprocedural states; Z79.899 Other long term (current) drug therapy; Z79.82 Long term (current) use of aspirin; Z88.6 Allergy status to analgesic agent; X58.XXXA Exposure to other specified factors, initial encounter; Y93.89 Activity, other specified; Y92.89 Other specified places as the place of occurrence of the external cause; Y99.9 Unspecified external cause status

== ENCOUNTER 2018-03-08 20:24 | Inpatient (IN) | payer OTHER ==
[~2018-03-08] VITALS: Ht 182.8 cm; Wt 63.7 kg
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
[2018-03-08 20:28] VITALS: BP 190/91
[2018-03-08 21:42] LABS: HEMOGLOBIN 16.1 g/dl (14.0-18.0); MEAN CELL VOLUME 87.5 fl (80.0-94.0); MEAN CORPUSCULAR HGB CONC 34.3 g/dl (33.0-37.0); MEAN PLATELET VOLUME 9.7 fl (9.6-12.3); PLATELET COUNT AUTOMATED 260 10*3/uL (130-400); RED BLOOD COUNT 5.37 10*6/uL (4.50-5.90); RED CELL DISTRI WIDTH 14.1 % (0-14.5); WHITE BLOOD COUNT 13.7 10*3/uL (4.8-10.8)
[2018-03-08 22:00] LABS: ALKALINE PHOSPHATASE 95 U/L (45-117); BUN 11 mg/dl (7-24); CHLORIDE 110 mmol/L (98-107); LIPASE 109 U/L (73-393); POTASSIUM 3.8 mmol/L (3.5-5.1); SGOT/AST 15 IU/L (3-35); SGPT/ALT 15 U/L (12-78); SODIUM 142 mmol/L (136-145); TOTAL PROTEIN 7.7 gm/dL (6.4-8.2)
[2018-03-08 22:09] LABS: PLATELET SUFFICIENCY NORMAL (NORMAL); TOTAL CELLS COUNTED 100 #CELLS
[2018-03-08 22:55] LABS: BILIRUBIN NEGATIVE (NEGATIVE); BLOOD NEGATIVE (NEGATIVE); CLARITY CLEAR (CLEAR); COLOR YELLOW (YELLOW); GLUCOSE TRACE (NEGATIVE); KETONE 2+ (NEGATIVE); LEUKO ESTERASE NEGATIVE (NEGATIVE); NITRITE NEGATIVE (NEGATIVE); PH 7.5 (5.0-9.0); UROBILINOGEN 0.2 E.U./dl (0.2-1.0)
[2018-03-08 23:07] LABS: URINE AMPHETAMINES < 1000 (1000ng/ml); URINE BARBITURATES < 200 (200ng/ml); URINE BENZODIAZEPINES < 200 (200ng/ml); URINE CANNABINOIDS (THC) < 50 (50ng/ml); URINE COCAINE < 300 (300ng/ml); URINE METHADONE < 300 (300ng/ml); URINE OPIATES < 300 (300ng/ml)
[2018-03-08 23:12] LABS: URINE PHENCYCLIDINE < 25 (25ng/ml)
[2018-03-08 23:24] LABS: BACTERIA TRACE; MUCOUS 2+
[2018-03-08 23:50] VITALS: BP 145/74
[2018-03-09] VITALS (7 sets, daily range): BP systolic 126–168; BP diastolic 69–83
[2018-03-09 06:30] LABS: BASO % 0.1 % (0.0-1.0); HEMATOCRIT 44.6 % (42.0-52.0); HEMOGLOBIN 14.8 g/dl (14.0-18.0); LYMPH # 0.8 10*3/uL (1.3-4.4); LYMPH % 8.1 % (27.0-41.0); MEAN CELL VOLUME 88.1 fl (80.0-94.0); MEAN CORPUSCULAR HGB 29.2 pg (27.0-31.0); MEAN CORPUSCULAR HGB CONC 33.2 g/dl (33.0-37.0); MEAN PLATELET VOLUME 9.8 fl (9.6-12.3); MONO # 0.4 10*3/uL (0.1-1.0); MONO % 3.8 % (3.0-9.0); NEUT # 8.1 10*3/uL (2.3-7.9); NEUT % 87.5 % (47.0-73.0); PLATELET COUNT AUTOMATED 232 10*3/uL (130-400); RED BLOOD COUNT 5.06 10*6/uL (4.50-5.90); RED CELL DISTRI WIDTH 14.1 % (0-14.5); WHITE BLOOD COUNT 9.3 10*3/uL (4.8-10.8)
[2018-03-09 06:56] LABS: ACT PARTIAL THROMBO TIME 20.7 SECONDS (20.8-31.5)
[2018-03-09] MEDS ORDERED: PRAZOSIN HCL1 MG PO (06:56)
[2018-03-09 06:57] LABS: ALBUMIN 3.7 gm/dl (3.1-4.5); ALKALINE PHOSPHATASE 86 U/L (45-117); BUN 9 mg/dl (7-24); CHLORIDE 110 mmol/L (98-107); CREATININE 0.67 mg/dL (0.70-1.30); PHOSPHOROUS 2.5 mg/dL (2.5-4.9); POTASSIUM 3.4 mmol/L (3.5-5.1); SGOT/AST 12 IU/L (3-35); SGPT/ALT 17 U/L (12-78); SODIUM 144 mmol/L (136-145); TOTAL PROTEIN 6.9 gm/dL (6.4-8.2)
[2018-03-09] MEDS ORDERED: SINUS NAS (06:57)
[2018-03-09 07:01] LABS: ETHYL ALCOHOL < 3.0 mg/dl (<3)
[2018-03-10] VITALS: BP 122/69
[2018-03-10 06:03] LABS: BASO % 0.4 % (0.0-1.0); EOS # 0.1 10*3/uL (0.0-0.4); EOS % 1.4 % (1.0-4.0); HEMATOCRIT 41.7 % (42.0-52.0); HEMOGLOBIN 13.7 g/dl (14.0-18.0); LYMPH # 1.9 10*3/uL (1.3-4.4); LYMPH % 20.1 % (27.0-41.0); MEAN CELL VOLUME 89.7 fl (80.0-94.0); MEAN CORPUSCULAR HGB 29.5 pg (27.0-31.0); MEAN CORPUSCULAR HGB CONC 32.9 g/dl (33.0-37.0); MEAN PLATELET VOLUME 9.7 fl (9.6-12.3); MONO # 0.8 10*3/uL (0.1-1.0); MONO % 8.7 % (3.0-9.0); NEUT # 6.4 10*3/uL (2.3-7.9); PLATELET COUNT AUTOMATED 208 10*3/uL (130-400); RED BLOOD COUNT 4.65 10*6/uL (4.50-5.90); RED CELL DISTRI WIDTH 14.3 % (0-14.5); WHITE BLOOD COUNT 9.2 10*3/uL (4.8-10.8)
[2018-03-10 06:15] LABS: ALBUMIN 2.8 gm/dl (3.1-4.5); BUN 14 mg/dl (7-24); CREATININE 0.68 mg/dL (0.70-1.30); LIPASE 98 U/L (73-393); SGOT/AST 12 IU/L (3-35)
[2018-03-10 06:58] LABS: ALKALINE PHOSPHATASE 63 U/L (45-117); CHLORIDE 111 mmol/L (98-107); POTASSIUM 3.7 mmol/L (3.5-5.1); SGPT/ALT 14 U/L (12-78); SODIUM 143 mmol/L (136-145); TOTAL PROTEIN 5.6 gm/dL (6.4-8.2)
[2018-03-10 08:00] VITALS: BP 142/77
[2018-03-10 12:00] VITALS: BP 128/68
[2018-03-10] MEDS ORDERED: HYDROXYZINE PAM25 M1 PO (15:10)
[2018-03-10] MEDS ORDERED: TRAZODONE150 MG PO (15:12)
[2018-03-10] MEDS ORDERED: PHENERGAN25 M3 PO (15:24)
[2018-03-10] MEDS ORDERED: LISINOPRIL10 M1 PO (15:24)
[2018-03-10] MEDS ORDERED: PROTONIX40 MG PO (15:24)
== END 2018-03-10 14:02 | disposition home or self-care (01) | DRG 391 ==
LOC: ED 20:24 → 4E 03-09 04:18 → EDHOLD 03-09 04:18 → 4E 03-09 04:49
PROVIDERS: Emergency Medicine; Internal Medicine Nephrology
DX: K52.9 Noninfective gastroenteritis and colitis, unspecified (principal); I21.A1 Myocardial infarction type 2; I11.0 Hypertensive heart disease with heart failure; I50.32 Chronic diastolic (congestive) heart failure; R65.10 Systemic inflammatory response syndrome (SIRS) of non-infectious origin without acute organ dysfunction; J44.9 Chronic obstructive pulmonary disease, unspecified; I16.1 Hypertensive emergency; F41.9 Anxiety disorder, unspecified; F32.9 Major depressive disorder, single episode, unspecified; F43.10 Post-traumatic stress disorder, unspecified; F17.210 Nicotine dependence, cigarettes, uncomplicated; R73.9 Hyperglycemia, unspecified; Z96.651 Presence of right artificial knee joint; G47.00 Insomnia, unspecified; E78.5 Hyperlipidemia, unspecified; I25.10 Atherosclerotic heart disease of native coronary artery without angina pectoris; Z88.6 Allergy status to analgesic agent; Z88.8 Allergy status to other drugs, medicaments and biological substances; Z79.82 Long term (current) use of aspirin; Z79.899 Other long term (current) drug therapy; Z86.14 Personal history of Methicillin resistant Staphylococcus aureus infection; Z90.49 Acquired absence of other specified parts of digestive tract; Z98.42 Cataract extraction status, left eye; Z98.41 Cataract extraction status, right eye; Z95.5 Presence of coronary angioplasty implant and graft; Z89.512 Acquired absence of left leg below knee; Z82.49 Family history of ischemic heart disease and other diseases of the circulatory system; Z83.3 Family history of diabetes mellitus

== ENCOUNTER 2018-03-11 13:18 | Inpatient (IN) | payer OTHER ==
[~2018-03-11] VITALS: Ht 182.9 cm; Wt 63.3 kg
[2018-03-11] VITALS (8 sets, daily range): BP systolic 135–201; BP diastolic 64–97
--- NOTE | ~2018-03-11 | O ---
[place], [place] OPERATIVE NOTE NAME: JONNATHAN OBRIEN UNIT #: [id number] ROOM: 404 DOCTOR: YOLIS PENA MD BIRTHDATE: [birth year] DOS: 03/12/2018 GASTROENDOSCOPIC REPORT HISTORY OF PRESENT ILLNESS: This is a 73-year-old patient who was presented with history of esophageal stricture in the past, abdominal pain, epigastric distress to Emergency Room, nauseated, vomiting, complaining of diarrhea, abdominal pain, complex for GI symptomatology. PAST MEDICAL HISTORY: Coronary artery disease, depression, congestive heart failure, diverticulosis, anxiety, history of esophageal stricture and history of PTSD. PAST SURGICAL HISTORY: Amputation of left lower extremity, cataract, knee prosthesis, cholecystectomy, exploratory laparotomy and previous esophageal dilation. SOCIAL HISTORY: Alcohol consumer and nicotine consumer. FAMILY HISTORY: Coronary artery disease and diabetes in parents. ALLERGIES: KETOROLAC, IBUPROFEN AND TRAMADOL. MEDICATIONS: List has been reviewed. PROCEDURE: Today's procedure part of investigation is panendoscopy and colonoscopy. PREMEDICATION: Versed and propofol. SCOPE: Olympus forward-viewing gastroscope Q10 video. REPORT: After putting the patient in left lateral position and application of lubricant to the scope, the scope was introduced. Thereafter, under direct visualization, advanced through the length of esophagus without difficulty into gastric pouch. Evidence of gastritis was seen. Distal esophagitis consistent with Michele esophagus and history of Michele was identified. Biopsy from Michele's was obtained as well as antral biopsy from gastritis was obtained. Duodenal bulb, second and third part within normal limit. The patient was extubated, tolerated procedure well. PLAN AND DISCUSSION: We are going to proceed with colonoscopic evaluation due to abdominal distress and pain. GASTROENDOSCOPIC REPORT INDICATIONS: The patient has presented with chief complaint of abdominal pain, undergoing investigation for change in bowel habit, bloating, gassy sensation as well as suspected colitis on CT scan. [place], [place] OPERATIVE NOTE NAME: JONNATHAN OBRIEN UNIT #: [id number] ROOM: 404 DOCTOR: YOLIS PENA MD BIRTHDATE: [birth year] PROCEDURE: Today's procedure part of investigation is colonoscopy. PREMEDICATION: Versed and propofol. SCOPE: Olympus forward-viewing colonoscope 10L video. REPORT: After the patient in left lateral position and application of lubricant to rectal pouch and digital examination, the scope was introduced; thereafter, under direct visualization, I advanced through the length of colon to the base of cecum. Evidence of scattered diverticulosis throughout the length of colon was noticed. No colitis identified. No acute ischemia noticed. Air was suctioned out. The patient was gradually extubated and tolerated the procedure well. IMPRESSION: Diverticulosis of colon. PLAN AND DISCUSSION: We are going to resume a regular diet and supportive management with a PPI and follow up on the nausea issue and monitoring medications as needed. His Michele is short segment and no acute concern at his age and status or his Michele tissue. Thank you very much indeed for your kind referral. Labs have been reviewed. Records have been reviewed. CT scan reviewed. Follow-up colonoscopy in 10 years unless patient has symptoms for which follow-up should be sooner. ADDENDUM Addendum to the colonoscopy report. The patient's colon also contains a broad-based polypoid lesion, which is approximately 2.5 cm in its diameters and the base of which is broad and cannot be resected with polypectomy and may need wedge resection of the polyp through surgical procedure. This polyp has been biopsied as well as the site has been tattoo marked and it is 20 cm away from rectal sphincter about. Also, other findings of the colon has been diverticulosis as identified in the body of dictation. [place], [place] OPERATIVE NOTE NAME: JONNATHAN OBRIEN UNIT #: [id number] ROOM: [facility] DOCTOR: YOLIS PENA MD BIRTHDATE: [birth year] YOLIS PENA MD CM:OPRECORD:OPERATIVE NOTE 1716 1801 YOLIS PENA MD 03/29/18 1739 interface
--- NOTE | ~2018-03-11 | O ---
[place], [place] OPERATIVE NOTE NAME: JONNATHAN OBRIEN UNIT #: [id number] ROOM: 404 DOCTOR: YOLIS PENA MD BIRTHDATE: [birth year] DOS: 03/12/2018 ADDENDUM Addendum to the colonoscopy report. The patient's colon also contains a broad-based polypoid lesion, which is approximately 2.5 cm in its diameters and the base of which is broad and cannot be resected with polypectomy and may need wedge resection of the polyp through surgical procedure. This polyp has been biopsied as well as the site has been tattoo marked and it is 20 cm away from rectal sphincter about. Also, other findings of the colon has been diverticulosis as identified in the body of dictation. YOLIS PENA MD CM:OPRECORD:OPERATIVE NOTE 1737 1748 YOLIS PENA MD 03/12/18 1901 interface
[~2018-03-11 13:18] MED LIST changes: +HYDROXYZINE PAM25 M1 PO; +LISINOPRIL10 M1 PO; +PHENERGAN25 M3 PO; +PRAZOSIN HCL1 MG PO; +SINUS NAS
[2018-03-11 14:13] LABS: MEAN CORPUSCULAR HGB 29.3 pg (27.0-31.0); MEAN CORPUSCULAR HGB CONC 33.8 g/dl (33.0-37.0); MEAN PLATELET VOLUME 9.7 fl (9.6-12.3); PLATELET COUNT AUTOMATED 245 10*3/uL (130-400); RED BLOOD COUNT 5.67 10*6/uL (4.50-5.90); RED CELL DISTRI WIDTH 13.4 % (0-14.5); WHITE BLOOD COUNT 12.4 10*3/uL (4.8-10.8)
[2018-03-11 14:14] LABS: HEMATOCRIT 49.1 % (42.0-52.0); HEMOGLOBIN 16.6 g/dl (14.0-18.0)
[2018-03-11 14:15] LABS: MEAN CELL VOLUME 86.6 fl (80.0-94.0)
[2018-03-11 14:20] LABS: ALBUMIN 3.9 gm/dl (3.1-4.5); ALKALINE PHOSPHATASE 95 U/L (45-117); BUN 11 mg/dl (7-24); CHLORIDE 105 mmol/L (98-107); CREATININE 0.77 mg/dL (0.70-1.30); LIPASE 76 U/L (73-393); POTASSIUM 3.5 mmol/L (3.5-5.1); SGOT/AST 16 IU/L (3-35); SGPT/ALT 20 U/L (12-78); SODIUM 139 mmol/L (136-145); TOTAL PROTEIN 7.3 gm/dL (6.4-8.2)
[2018-03-11 14:31] LABS: TOTAL CELLS COUNTED 100 #CELLS
[2018-03-11 14:32] LABS: PLATELET SUFFICIENCY NORMAL (NORMAL)
[2018-03-11 15:34] LABS: BILIRUBIN NEGATIVE (NEGATIVE); BLOOD NEGATIVE (NEGATIVE); CLARITY CLEAR (CLEAR); COLOR YELLOW (YELLOW); GLUCOSE NEGATIVE (NEGATIVE); KETONE 3+ (NEGATIVE); LEUKO ESTERASE NEGATIVE (NEGATIVE); NITRITE NEGATIVE (NEGATIVE); PH 6.5 (5.0-9.0); UROBILINOGEN 0.2 E.U./dl (0.2-1.0)
[2018-03-11 15:44] LABS: URINE AMPHETAMINES < 1000 (1000ng/ml); URINE BARBITURATES < 200 (200ng/ml); URINE BENZODIAZEPINES < 200 (200ng/ml); URINE CANNABINOIDS (THC) < 50 (50ng/ml); URINE COCAINE < 300 (300ng/ml); URINE METHADONE < 300 (300ng/ml); URINE OPIATES > 300 (300ng/ml)
[2018-03-11 15:54] LABS: URINE PHENCYCLIDINE < 25 (25ng/ml)
[2018-03-11 15:58] LABS: BACTERIA TRACE; MUCOUS TRACE
[2018-03-11 15:59] LABS: HYALINE CAST 0-2; RBC 0-2 rbc/hpf (0-2)
[2018-03-12] VITALS (8 sets, daily range): BP systolic 98–149; BP diastolic 54–78
[2018-03-12 02:20] LABS: BASO % 0.3 % (0.0-1.0); EOS % 0.4 % (1.0-4.0); HEMATOCRIT 44.7 % (42.0-52.0); HEMOGLOBIN 15.6 g/dl (14.0-18.0); LYMPH # 1.6 10*3/uL (1.3-4.4); LYMPH % 16.1 % (27.0-41.0); MEAN CELL VOLUME 85.5 fl (80.0-94.0); MEAN CORPUSCULAR HGB 29.8 pg (27.0-31.0); MEAN CORPUSCULAR HGB CONC 34.9 g/dl (33.0-37.0); MEAN PLATELET VOLUME 9.7 fl (9.6-12.3); MONO % 10.5 % (3.0-9.0); NEUT % 72.2 % (47.0-73.0); PLATELET COUNT AUTOMATED 233 10*3/uL (130-400); RED BLOOD COUNT 5.23 10*6/uL (4.50-5.90); RED CELL DISTRI WIDTH 13.4 % (0-14.5); WHITE BLOOD COUNT 9.7 10*3/uL (4.8-10.8)
[2018-03-12 02:32] LABS: ACT PARTIAL THROMBO TIME 21.1 SECONDS (20.8-31.5)
[2018-03-12 02:36] LABS: ALBUMIN 3.5 gm/dl (3.1-4.5); ALKALINE PHOSPHATASE 84 U/L (45-117); BUN 10 mg/dl (7-24); CHLORIDE 104 mmol/L (98-107); CHOLESTEROL 113 mg/dL (<200); CREATININE 0.83 mg/dL (0.70-1.30); HDL CHOLESTEROL 42 mg/dl (40-60); LDL CHOLESTEROL 60 mg/dL (9-159); PHOSPHOROUS 3.8 mg/dL (2.5-4.9); SGOT/AST 12 IU/L (3-35); SGPT/ALT 18 U/L (12-78); SODIUM 138 mmol/L (136-145); TOTAL PROTEIN 6.9 gm/dL (6.4-8.2); TRIGLYCERIDES 57 mg/dl (<150); VLDL CHOLESTEROL 11 mg/dL (6-40)
[2018-03-12 02:42] LABS: THYROID STIM HORMONE (HS) 0.738 uIU/ml (0.358-4.75)
[2018-03-12 06:39] LABS: VITAMIN D, 25-HYDROXY 28.5 ng/mL (30-100)
[2018-03-13] VITALS: BP 101/58
[2018-03-13 06:17] LABS: BASO # 0.1 10*3/uL (0.0-0.1); BASO % 0.4 % (0.0-1.0); EOS # 0.2 10*3/uL (0.0-0.4); EOS % 1.8 % (1.0-4.0); HEMATOCRIT 41.5 % (42.0-52.0); LYMPH # 1.2 10*3/uL (1.3-4.4); MEAN CELL VOLUME 87.7 fl (80.0-94.0); MEAN CORPUSCULAR HGB 29.6 pg (27.0-31.0); MEAN CORPUSCULAR HGB CONC 33.7 g/dl (33.0-37.0); MEAN PLATELET VOLUME 10.1 fl (9.6-12.3); MONO % 7.9 % (3.0-9.0); NEUT # 10.2 10*3/uL (2.3-7.9); NEUT % 80.3 % (47.0-73.0); PLATELET COUNT AUTOMATED 218 10*3/uL (130-400); RED BLOOD COUNT 4.73 10*6/uL (4.50-5.90); RED CELL DISTRI WIDTH 13.9 % (0-14.5); WHITE BLOOD COUNT 12.7 10*3/uL (4.8-10.8)
[2018-03-13 06:36] LABS: ALBUMIN 2.7 gm/dl (3.1-4.5); ALKALINE PHOSPHATASE 78 U/L (45-117); BUN 18 mg/dl (7-24); CHLORIDE 111 mmol/L (98-107); CREATININE 0.71 mg/dL (0.70-1.30); PHOSPHOROUS 2.6 mg/dL (2.5-4.9); SGOT/AST 4 IU/L (3-35); SGPT/ALT 17 U/L (12-78); SODIUM 143 mmol/L (136-145); TOTAL PROTEIN 5.5 gm/dL (6.4-8.2)
[2018-03-13 08:00] VITALS: BP 130/71
[2018-03-13 12:00] VITALS: BP 133/69
[2018-03-13 16:00] VITALS: BP 138/66
[2018-03-13 20:00] VITALS: BP 172/73
[2018-03-14] VITALS: BP 199/84
[2018-03-14 04:00] VITALS: BP 157/78
[2018-03-14 05:51] LABS: BUN 9 mg/dl (7-24); CHLORIDE 108 mmol/L (98-107); CREATININE 0.62 mg/dL (0.70-1.30); POTASSIUM 3.2 mmol/L (3.5-5.1); SODIUM 140 mmol/L (136-145)
[2018-03-14 05:53] LABS: BASO % 0.2 % (0.0-1.0); HEMATOCRIT 43.9 % (42.0-52.0); HEMOGLOBIN 15.4 g/dl (14.0-18.0); LYMPH # 1.1 10*3/uL (1.3-4.4); LYMPH % 10.4 % (27.0-41.0); MEAN CELL VOLUME 85.7 fl (80.0-94.0); MEAN CORPUSCULAR HGB 30.1 pg (27.0-31.0); MEAN CORPUSCULAR HGB CONC 35.1 g/dl (33.0-37.0); MONO # 0.5 10*3/uL (0.1-1.0); MONO % 5.2 % (3.0-9.0); NEUT # 8.7 10*3/uL (2.3-7.9); NEUT % 83.6 % (47.0-73.0); PLATELET COUNT AUTOMATED 231 10*3/uL (130-400); RED BLOOD COUNT 5.12 10*6/uL (4.50-5.90); RED CELL DISTRI WIDTH 13.6 % (0-14.5); WHITE BLOOD COUNT 10.4 10*3/uL (4.8-10.8)
[2018-03-14 08:00] VITALS: BP 164/82
[2018-03-14] MEDS ORDERED: VITAMIN D-32000 UNIT PO (10:30)
[2018-03-14] MEDS ORDERED: ZOFRAN 4 MG ED2 TAB PO (10:30)
[2018-03-14] MEDS ORDERED: CIPROFLOXACIN500 M4 PO (10:30)
[2018-03-14] MEDS ORDERED: METRONIDAZOLE500 M1 PO (10:30)
[2018-03-14] MEDS ORDERED: HYDROCODONE-AC1 EAC2 PO (10:30)
[2018-03-14] MEDS ORDERED: NICODERM T (10:30)
== END 2018-03-14 11:50 | disposition home or self-care (01) | DRG 392 ==
LOC: ED 13:18 → 4E 18:50 → EDHOLD 18:50 → 4E 18:53
PROVIDERS: Emergency Medicine; Internal Medicine; Internal Medicine Nephrology
DX: K52.9 Noninfective gastroenteritis and colitis, unspecified (principal); I11.0 Hypertensive heart disease with heart failure; I50.32 Chronic diastolic (congestive) heart failure; Z89.612 Acquired absence of left leg above knee; D72.810 Lymphocytopenia; I16.0 Hypertensive urgency; R73.9 Hyperglycemia, unspecified; I25.10 Atherosclerotic heart disease of native coronary artery without angina pectoris; K21.9 Gastro-esophageal reflux disease without esophagitis; F43.10 Post-traumatic stress disorder, unspecified; K63.5 Polyp of colon; Z96.651 Presence of right artificial knee joint; F41.9 Anxiety disorder, unspecified; F32.9 Major depressive disorder, single episode, unspecified; K29.70 Gastritis, unspecified, without bleeding; G47.00 Insomnia, unspecified; F17.210 Nicotine dependence, cigarettes, uncomplicated; K57.30 Diverticulosis of large intestine without perforation or abscess without bleeding; E78.5 Hyperlipidemia, unspecified; E55.9 Vitamin D deficiency, unspecified; K22.719 Barrett's esophagus with dysplasia, unspecified; Z88.6 Allergy status to analgesic agent; Z88.8 Allergy status to other drugs, medicaments and biological substances; Z79.82 Long term (current) use of aspirin; Z79.899 Other long term (current) drug therapy; Z86.14 Personal history of Methicillin resistant Staphylococcus aureus infection; Z98.42 Cataract extraction status, left eye; Z98.41 Cataract extraction status, right eye; Z95.5 Presence of coronary angioplasty implant and graft; Z90.49 Acquired absence of other specified parts of digestive tract

== ENCOUNTER 2021-04-05 17:29 | Emergency (ER) | payer OTHER ==
[~2021-04-05] VITALS: Ht 182.8 cm; Wt 83.9 kg
[~2021-04-05 17:29] MED LIST changes: +CIPROFLOXACIN500 M4 PO; +HYDROCODONE-AC1 EAC2 PO; +METRONIDAZOLE500 M1 PO; +NICODERM T; +PERCOCET 5-3251 EACH PO; +VITAMIN D-32000 UNIT PO; +ZOFRAN 4 MG ED2 TAB PO
[2021-04-05 17:54] VITALS: BP 142/91
[2021-04-05] MEDS ORDERED: PREDNISONE50 MG PO (18:57)
[2021-04-05] MEDS ORDERED: HYDROCODONE-AC1 EAC1 PO (18:57)
== END 2021-04-05 19:15 | disposition home or self-care (01) ==
LOC: ED 17:29
DX: M19.011 Primary osteoarthritis, right shoulder (principal); F17.200 Nicotine dependence, unspecified, uncomplicated; Z88.6 Allergy status to analgesic agent; Z88.8 Allergy status to other drugs, medicaments and biological substances; Z79.899 Other long term (current) drug therapy; Z79.2 Long term (current) use of antibiotics; Z89.612 Acquired absence of left leg above knee; Z95.5 Presence of coronary angioplasty implant and graft; Z90.49 Acquired absence of other specified parts of digestive tract

== ENCOUNTER 2021-06-10 02:59 | Emergency (ER) | payer OTHER ==
[~2021-06-10] VITALS: Ht 177.8 cm; Wt 79.4 kg
[~2021-06-10 02:59] MED LIST changes: +HYDROCODONE-AC1 EAC1 PO; +PREDNISONE50 MG PO
[2021-06-10 03:12] VITALS: BP 130/61
== END 2021-06-10 04:00 | disposition home or self-care (01) ==
LOC: ED 02:59
DX: M19.012 Primary osteoarthritis, left shoulder (principal); M19.011 Primary osteoarthritis, right shoulder; Z88.6 Allergy status to analgesic agent

== ENCOUNTER 2021-06-11 20:36 | Emergency (ER) | payer OTHER ==
[~2021-06-11] VITALS: Ht 182.8 cm; Wt 81.6 kg
[2021-06-11 21:45] VITALS: BP 169/84
[2021-06-12 00:41] LABS: BASO # 0.1 10*3/uL (0.0-0.1); BASO % 0.5 % (0.0-1.0); EOS # 0.2 10*3/uL (0.0-0.4); HEMATOCRIT 41.5 % (42.0-52.0); LYMPH # 2.4 10*3/uL (1.3-4.4); LYMPH % 23.9 % (27.0-41.0); MEAN CELL VOLUME 88.1 fl (80.0-94.0); MEAN CORPUSCULAR HGB 28.7 pg (27.0-31.0); MEAN CORPUSCULAR HGB CONC 32.5 g/dl (33.0-37.0); MEAN PLATELET VOLUME 9.3 fl (9.6-12.3); MONO # 0.8 10*3/uL (0.1-1.0); MONO % 7.8 % (3.0-9.0); NEUT # 6.7 10*3/uL (2.3-7.9); NEUT % 65.4 % (47.0-73.0); PLATELET COUNT AUTOMATED 281 10*3/uL (130-400); RED BLOOD COUNT 4.71 10*6/uL (4.50-5.90); RED CELL DISTRI WIDTH 17.3 % (0-14.5); WHITE BLOOD COUNT 10.2 10*3/uL (4.8-10.8)
[2021-06-12 01:00] LABS: ALBUMIN 3.1 gm/dl (3.1-4.5); ALKALINE PHOSPHATASE 95 U/L (45-117); BUN 16 mg/dl (7-24); CHLORIDE 108 mmol/L (98-107); CREATININE 0.92 mg/dL (0.70-1.30); POTASSIUM 4.1 mmol/L (3.5-5.1); SGOT/AST 14 IU/L (3-35); SGPT/ALT 19 U/L (12-78); SODIUM 139 mmol/L (136-145); TROPONIN I < 0.015 ng/ml (<0.045)
== END 2021-06-12 02:37 | disposition left against medical advice (07) ==
LOC: ED 20:36
PROVIDERS: Emergency Medicine
DX: M25.511 Pain in right shoulder (principal); M25.512 Pain in left shoulder; F17.200 Nicotine dependence, unspecified, uncomplicated; I10 Essential (primary) hypertension; K21.9 Gastro-esophageal reflux disease without esophagitis; Z96.651 Presence of right artificial knee joint; Z95.5 Presence of coronary angioplasty implant and graft; Z90.49 Acquired absence of other specified parts of digestive tract; Z79.899 Other long term (current) drug therapy; Z88.6 Allergy status to analgesic agent; W18.30XA Fall on same level, unspecified, initial encounter; Y93.89 Activity, other specified; Y92.89 Other specified places as the place of occurrence of the external cause; Y99.9 Unspecified external cause status

== ENCOUNTER 2021-07-29 16:11 | Emergency (ER) | payer OTHER ==
[~2021-07-29] VITALS: Ht 182.8 cm; Wt 83.9 kg
[2021-07-29 16:19] VITALS: BP 149/79
== END 2021-07-29 19:31 | disposition left against medical advice (07) ==
LOC: ED 16:11
DX: M25.511 Pain in right shoulder (principal); M25.512 Pain in left shoulder; Z53.21 Procedure and treatment not carried out due to patient leaving prior to being seen by health care provider

== ENCOUNTER 2022-02-26 02:56 | Emergency (ER) | payer OTHER ==
[~2022-02-26] VITALS: Ht 177.8 cm; Wt 69.9 kg
[2022-02-26 03:04] VITALS: BP 126/81
[2022-02-27] MEDS ORDERED: HYDROCODONE-AC1 EAC1 PO (15:39)
== END 2022-02-26 03:38 | disposition home or self-care (01) ==
LOC: ED 02:56
DX: M54.50 Low back pain, unspecified (principal); M25.511 Pain in right shoulder; M79.671 Pain in right foot; Z88.6 Allergy status to analgesic agent; Z90.49 Acquired absence of other specified parts of digestive tract; Z98.890 Other specified postprocedural states; Z87.891 Personal history of nicotine dependence

== ENCOUNTER 2022-02-27 10:00 | Emergency (ER) | payer OTHER ==
[~2022-02-27] VITALS: Ht 185.4 cm; Wt 83.9 kg
[2022-02-27 10:30] VITALS: BP 140/88
[2022-02-27] MEDS ORDERED: HYDROCODONE-AC1 EAC1 PO (15:39)
== END 2022-02-27 16:30 | disposition home or self-care (01) ==
LOC: ED 10:00
DX: S32.010A Wedge compression fracture of first lumbar vertebra, initial encounter for closed fracture (principal); Z90.49 Acquired absence of other specified parts of digestive tract; Z98.890 Other specified postprocedural states; Z87.891 Personal history of nicotine dependence; W18.39XA Other fall on same level, initial encounter; Y93.89 Activity, other specified; Y92.89 Other specified places as the place of occurrence of the external cause; Y99.8 Other external cause status

== ENCOUNTER 2022-03-05 08:43 | Emergency (ER) | payer OTHER ==
[2022-03-05 09:27] LABS: BASO % 0.4 % (0.0-1.0); EOS # 0.1 10*3/uL (0.0-0.4); EOS % 1.1 % (1.0-4.0); HEMATOCRIT 41.5 % (42.0-52.0); LYMPH # 1.1 10*3/uL (1.3-4.4); LYMPH % 14.1 % (27.0-41.0); MEAN CELL VOLUME 86.5 fl (80.0-94.0); MEAN CORPUSCULAR HGB 27.7 pg (27.0-31.0); MEAN PLATELET VOLUME 9.5 fl (9.6-12.3); MONO # 0.5 10*3/uL (0.1-1.0); MONO % 6.1 % (3.0-9.0); NEUT # 5.8 10*3/uL (2.3-7.9); NEUT % 77.8 % (47.0-73.0); PLATELET COUNT AUTOMATED 319 10*3/uL (130-400); RED CELL DISTRI WIDTH 15.1 % (0-14.5); WHITE BLOOD COUNT 7.5 10*3/uL (4.8-10.8)
[2022-03-05 09:43] LABS: ACT PARTIAL THROMBO TIME 26.1 SECONDS (20.0-32.1)
[2022-03-05 09:45] LABS: ALKALINE PHOSPHATASE 130 U/L (45-117); BUN 17 mg/dl (7-24); CHLORIDE 112 mmol/L (98-107); CREATININE 0.87 mg/dL (0.70-1.30); POTASSIUM 3.2 mmol/L (3.5-5.1); SGOT/AST 10 IU/L (3-35); SGPT/ALT 21 U/L (12-78); SODIUM 142 mmol/L (136-145); TOTAL PROTEIN 6.8 gm/dL (6.4-8.2)
[2022-03-05 14:06] VITALS: BP 139/94
== END 2022-03-05 16:04 | disposition left against medical advice (07) ==
LOC: ED 08:43
PROVIDERS: Student in an Organized Health Care Education/Training Program
DX: R07.9 Chest pain, unspecified (principal); Z88.6 Allergy status to analgesic agent; Z90.49 Acquired absence of other specified parts of digestive tract; Z98.890 Other specified postprocedural states; Z87.891 Personal history of nicotine dependence

== ENCOUNTER 2022-05-02 00:27 | Emergency (ER) | payer OTHER ==
[~2022-05-02] VITALS: Ht 175.2 cm; Wt 68.0 kg
[2022-05-02 01:04] VITALS: BP 142/78
[2022-05-02] MEDS ORDERED: PREDNISONE20 M1 PO (01:36)
[2022-05-02] MEDS ORDERED: CEFDINIR300 MG PO (01:36)
== END 2022-05-02 01:55 | disposition home or self-care (01) ==
LOC: ED 00:27
DX: H92.01 Otalgia, right ear (principal); R21 Rash and other nonspecific skin eruption; M54.2 Cervicalgia; Z88.6 Allergy status to analgesic agent; Z98.890 Other specified postprocedural states; Z87.891 Personal history of nicotine dependence

== ENCOUNTER 2022-07-07 09:29 | Emergency (ER) | payer OTHER ==
[~2022-07-07] VITALS: Ht 182.8 cm; Wt 72.6 kg
[~2022-07-07 09:29] MED LIST changes: +CEFDINIR300 MG PO; +PREDNISONE20 M1 PO
[2022-07-07 09:31] VITALS: BP 159/89
[2022-07-07 10:16] LABS: BASO % 0.7 % (0.0-1.0); EOS # 0.4 10*3/uL (0.0-0.4); HEMATOCRIT 44.1 % (42.0-52.0); LYMPH # 1.5 10*3/uL (1.3-4.4); LYMPH % 24.8 % (27.0-41.0); MEAN CELL VOLUME 84.2 fl (80.0-94.0); MEAN CORPUSCULAR HGB 27.1 pg (27.0-31.0); MEAN CORPUSCULAR HGB CONC 32.2 g/dl (33.0-37.0); MEAN PLATELET VOLUME 9.4 fl (9.6-12.3); MONO # 0.4 10*3/uL (0.1-1.0); MONO % 6.3 % (3.0-9.0); NEUT # 3.7 10*3/uL (2.3-7.9); NEUT % 60.9 % (47.0-73.0); PLATELET COUNT AUTOMATED 255 10*3/uL (130-400); RED BLOOD COUNT 5.24 10*6/uL (4.50-5.90); RED CELL DISTRI WIDTH 15.9 % (0-14.5)
[2022-07-07 10:23] LABS: ACT PARTIAL THROMBO TIME 28.2 SECONDS (20.0-32.1)
[2022-07-07 10:27] LABS: ALKALINE PHOSPHATASE 116 U/L (45-117); BUN 14 mg/dl (7-24); CHLORIDE 108 mmol/L (98-107); CREATININE 0.78 mg/dL (0.70-1.30); POTASSIUM 3.9 mmol/L (3.5-5.1); SGOT/AST 15 IU/L (3-35); SGPT/ALT 21 U/L (12-78); SODIUM 140 mmol/L (136-145)
== END 2022-07-07 12:43 | disposition home or self-care (01) ==
LOC: ED 09:29
PROVIDERS: Emergency Medicine
DX: G89.29 Other chronic pain (principal); M79.674 Pain in right toe(s); Z88.6 Allergy status to analgesic agent; Z90.49 Acquired absence of other specified parts of digestive tract; Z98.890 Other specified postprocedural states; Z87.891 Personal history of nicotine dependence

== ENCOUNTER 2022-07-10 14:18 | Emergency (ER) | payer OTHER ==
[~2022-07-10] VITALS: Ht 185.4 cm; Wt 81.6 kg
[2022-07-10 14:26] VITALS: BP 180/93
[2022-07-10 16:12] LABS: BILIRUBIN Negative (Negative); BLOOD Negative (Negative); CLARITY Clear (Clear); COLOR Yellow (Yellow); GLUCOSE Negative (Negative); KETONE Negative (Negative); LEUKO ESTERASE Negative (Negative); NITRITE Negative (Negative); PH 6.5 (4.5-8.0); SPECIFIC GRAVITY 1.015 (1.001-1.030); UROBILINOGEN 0.2 E.U./dl (0.0-1.0)
[2022-07-10 16:21] LABS: EPITHELIAL CELLS 0-2; WBC 0-2 wbc/hpf (0-5)
[2022-07-10 16:32] LABS: BASO % 0.5 % (0.0-1.0); EOS # 0.2 10*3/uL (0.0-0.4); EOS % 1.8 % (1.0-4.0); LYMPH # 1.5 10*3/uL (1.3-4.4); LYMPH % 17.7 % (27.0-41.0); MEAN CELL VOLUME 83.7 fl (80.0-94.0); MEAN CORPUSCULAR HGB 26.3 pg (27.0-31.0); MEAN CORPUSCULAR HGB CONC 31.4 g/dl (33.0-37.0); MEAN PLATELET VOLUME 9.4 fl (9.6-12.3); MONO # 0.4 10*3/uL (0.1-1.0); MONO % 5.4 % (3.0-9.0); NEUT # 6.1 10*3/uL (2.3-7.9); NEUT % 74.2 % (47.0-73.0); PLATELET COUNT AUTOMATED 259 10*3/uL (130-400); RED BLOOD COUNT 5.14 10*6/uL (4.50-5.90); RED CELL DISTRI WIDTH 16.2 % (0-14.5); WHITE BLOOD COUNT 8.2 10*3/uL (4.8-10.8)
[2022-07-10] MEDS ORDERED: MIRALAX POWDER17 G1 PO (16:48)
[2022-07-10 16:50] LABS: ALKALINE PHOSPHATASE 109 U/L (45-117); BUN 14 mg/dl (7-24); CHLORIDE 109 mmol/L (98-107); CREATININE 0.79 mg/dL (0.70-1.30); POTASSIUM 4.3 mmol/L (3.5-5.1); SGOT/AST 15 IU/L (3-35); SGPT/ALT 22 U/L (12-78); SODIUM 140 mmol/L (136-145); TOTAL PROTEIN 6.7 gm/dL (6.4-8.2)
== END 2022-07-10 16:49 | disposition home or self-care (01) ==
LOC: ED 14:18
PROVIDERS: Nurse Practitioner Family
DX: K59.00 Constipation, unspecified (principal); Z88.6 Allergy status to analgesic agent; Z98.890 Other specified postprocedural states; Z90.49 Acquired absence of other specified parts of digestive tract; Z87.891 Personal history of nicotine dependence

== ENCOUNTER 2022-07-18 16:14 | Emergency (ER) | payer OTHER ==
[~2022-07-18] VITALS: Ht 185.4 cm; Wt 81.6 kg
[~2022-07-18 16:14] MED LIST changes: +MIRALAX POWDER17 G1 PO
[2022-07-18 16:38] VITALS: BP 164/90
== END 2022-07-18 19:03 | disposition home or self-care (01) ==
LOC: ED 16:14
DX: G89.29 Other chronic pain (principal); M25.511 Pain in right shoulder; M25.512 Pain in left shoulder; F17.200 Nicotine dependence, unspecified, uncomplicated; Z88.6 Allergy status to analgesic agent; Z88.8 Allergy status to other drugs, medicaments and biological substances; Z79.899 Other long term (current) drug therapy; Z89.612 Acquired absence of left leg above knee; Z95.5 Presence of coronary angioplasty implant and graft; Z90.49 Acquired absence of other specified parts of digestive tract; Z96.651 Presence of right artificial knee joint

== ENCOUNTER 2022-07-24 11:43 | Emergency (ER) | payer OTHER ==
[~2022-07-24] VITALS: Ht 185.4 cm; Wt 86.2 kg
[2022-07-24 11:53] VITALS: BP 171/96
[2022-07-24 12:16] LABS: BASO % 0.3 % (0.0-1.0); EOS # 0.1 10*3/uL (0.0-0.4); EOS % 0.8 % (1.0-4.0); LYMPH # 1.2 10*3/uL (1.3-4.4); MEAN CELL VOLUME 84.8 fl (80.0-94.0); MEAN CORPUSCULAR HGB 26.7 pg (27.0-31.0); MEAN CORPUSCULAR HGB CONC 31.4 g/dl (33.0-37.0); MEAN PLATELET VOLUME 9.4 fl (9.6-12.3); MONO # 0.8 10*3/uL (0.1-1.0); MONO % 6.6 % (3.0-9.0); NEUT # 9.8 10*3/uL (2.3-7.9); NEUT % 81.4 % (47.0-73.0); PLATELET COUNT AUTOMATED 283 10*3/uL (130-400); RED BLOOD COUNT 4.95 10*6/uL (4.50-5.90); RED CELL DISTRI WIDTH 16.2 % (0-14.5); WHITE BLOOD COUNT 12.1 10*3/uL (4.8-10.8)
[2022-07-24 12:32] LABS: ALKALINE PHOSPHATASE 100 U/L (45-117); BUN 19 mg/dl (7-24); CHLORIDE 111 mmol/L (98-107); CREATININE 0.74 mg/dL (0.70-1.30); POTASSIUM 4.1 mmol/L (3.5-5.1); SGOT/AST 10 IU/L (3-35); SGPT/ALT 20 U/L (12-78); SODIUM 142 mmol/L (136-145); TOTAL PROTEIN 6.6 gm/dL (6.4-8.2)
[2022-07-24 14:26] LABS: BILIRUBIN Negative (Negative); BLOOD Negative (Negative); CLARITY Clear (Clear); COLOR Yellow (Yellow); GLUCOSE Negative (Negative); KETONE Negative (Negative); LEUKO ESTERASE Negative (Negative); NITRITE Negative (Negative); SPECIFIC GRAVITY 1.025 (1.001-1.030); UROBILINOGEN 0.2 E.U./dl (0.0-1.0)
[2022-07-24] MEDS ORDERED: PERCOCET 5-3251 EACH PO (14:40)
[2022-07-24 14:47] LABS: MUCOUS 2+; WBC 0-2 wbc/hpf (0-5)
== END 2022-07-24 14:58 | disposition home or self-care (01) ==
LOC: ED 11:43
PROVIDERS: Family Medicine
DX: M19.90 Unspecified osteoarthritis, unspecified site (principal); R30.9 Painful micturition, unspecified; Z88.6 Allergy status to analgesic agent; Z90.49 Acquired absence of other specified parts of digestive tract; Z98.890 Other specified postprocedural states; Z87.891 Personal history of nicotine dependence

== ENCOUNTER 2022-08-13 07:54 | Emergency (ER) | payer OTHER ==
[2022-08-13 08:17] VITALS: BP 142/91
[2022-08-13] MEDS ORDERED: VOLTAREN ARTHRI20 GM T (09:28)
[2022-08-13] MEDS ORDERED: HYDROCODONE-AC1 EAC1 PO (09:28)
[2022-08-13] MEDS ORDERED: ARTHRITIS PAI42.5 GM T (09:28)
== END 2022-08-13 09:33 | disposition home or self-care (01) ==
LOC: ED 07:54
DX: G89.29 Other chronic pain (principal); M25.552 Pain in left hip; M25.539 Pain in unspecified wrist; M54.2 Cervicalgia; F41.9 Anxiety disorder, unspecified; I25.10 Atherosclerotic heart disease of native coronary artery without angina pectoris; F32.A Depression, unspecified; K21.9 Gastro-esophageal reflux disease without esophagitis; I11.0 Hypertensive heart disease with heart failure; I50.30 Unspecified diastolic (congestive) heart failure; E78.5 Hyperlipidemia, unspecified; M19.012 Primary osteoarthritis, left shoulder; F43.10 Post-traumatic stress disorder, unspecified; M19.011 Primary osteoarthritis, right shoulder; F17.210 Nicotine dependence, cigarettes, uncomplicated; Z89.612 Acquired absence of left leg above knee; Z88.6 Allergy status to analgesic agent; Z88.8 Allergy status to other drugs, medicaments and biological substances; Z79.899 Other long term (current) drug therapy; Z95.5 Presence of coronary angioplasty implant and graft; Z96.651 Presence of right artificial knee joint; Z90.49 Acquired absence of other specified parts of digestive tract

== ENCOUNTER 2022-08-25 20:44 | Inpatient (IN) | payer OTHER ==
[~2022-08-25] VITALS: Ht 185.4 cm; Wt 57.2 kg
[~2022-08-25 20:44] MED LIST changes: +ARTHRITIS PAI42.5 GM T; +VOLTAREN ARTHRI20 GM T
[2022-08-25 20:56] VITALS: BP 152/95
[2022-08-25 21:07] LABS: BASO % 0.5 % (0.0-1.0); EOS # 0.1 10*3/uL (0.0-0.4); EOS % 1.3 % (1.0-4.0); HEMATOCRIT 41.5 % (42.0-52.0); LYMPH # 1.7 10*3/uL (1.3-4.4); LYMPH % 19.1 % (27.0-41.0); MEAN CELL VOLUME 82.5 fl (80.0-94.0); MEAN CORPUSCULAR HGB 26.8 pg (27.0-31.0); MEAN CORPUSCULAR HGB CONC 32.5 g/dl (33.0-37.0); MEAN PLATELET VOLUME 9.1 fl (9.6-12.3); MONO # 0.8 10*3/uL (0.1-1.0); MONO % 9.2 % (3.0-9.0); PLATELET COUNT AUTOMATED 340 10*3/uL (130-400); RED BLOOD COUNT 5.03 10*6/uL (4.50-5.90); RED CELL DISTRI WIDTH 15.1 % (0-14.5); WHITE BLOOD COUNT 8.7 10*3/uL (4.8-10.8)
[2022-08-25 21:23] LABS: ALKALINE PHOSPHATASE 99 U/L (45-117); BUN 15 mg/dl (7-24); CHLORIDE 108 mmol/L (98-107); POTASSIUM 3.7 mmol/L (3.5-5.1); SGPT/ALT 26 U/L (12-78); SODIUM 142 mmol/L (136-145); TOTAL PROTEIN 7.6 gm/dL (6.4-8.2)
[2022-08-25 21:27] LABS: ACT PARTIAL THROMBO TIME 29.6 SECONDS (20.0-32.1); INTERNATIONAL NORM RATIO 1.2 (2.0-3.5)
[2022-08-25 21:55] VITALS: BP 151/88
[2022-08-25 23:00] VITALS: BP 117/88
[2022-08-26] VITALS (7 sets, daily range): BP systolic 129–151; BP diastolic 65–88
[2022-08-26 03:05] LABS: HEMATOCRIT 38.4 % (42.0-52.0); MEAN CELL VOLUME 82.9 fl (80.0-94.0); MEAN CORPUSCULAR HGB 27.2 pg (27.0-31.0); MEAN CORPUSCULAR HGB CONC 32.8 g/dl (33.0-37.0); MEAN PLATELET VOLUME 9.1 fl (9.6-12.3); PLATELET COUNT AUTOMATED 319 10*3/uL (130-400); RED BLOOD COUNT 4.63 10*6/uL (4.50-5.90); RED CELL DISTRI WIDTH 15.1 % (0-14.5); WHITE BLOOD COUNT 7.1 10*3/uL (4.8-10.8)
[2022-08-26 03:06] LABS: MANUAL DIFF REFLEX YES
[2022-08-26 03:21] LABS: ALKALINE PHOSPHATASE 87 U/L (45-117); BUN 14 mg/dl (7-24); CHLORIDE 108 mmol/L (98-107); CHOLESTEROL 123 mg/dL (<200); CREATININE 0.58 mg/dL (0.70-1.30); LDL CHOLESTEROL 75 mg/dL (9-159); POTASSIUM 3.4 mmol/L (3.5-5.1); SGPT/ALT 23 U/L (12-78); SODIUM 142 mmol/L (136-145); TOTAL PROTEIN 7.2 gm/dL (6.4-8.2); TRIGLYCERIDES 69 mg/dl (<150)
[2022-08-26 03:22] LABS: FREE T4 1.44 ng/dl (0.76-1.46)
[2022-08-26 03:27] LABS: THYROID STIM HORMONE (HS) 0.513 uIU/ml (0.358-4.75)
[2022-08-26 04:08] LABS: ATYPICAL LYMPHS 3 % (0-0); BASOPHILS 1 % (0-1); PLATELET SUFFICIENCY NORMAL (NORMAL); TOTAL CELLS COUNTED 100 #CELLS
[2022-08-27] VITALS: BP 145/77
[2022-08-27 05:32] LABS: BUN 13 mg/dl (7-24); CHLORIDE 112 mmol/L (98-107); POTASSIUM 3.9 mmol/L (3.5-5.1); SODIUM 142 mmol/L (136-145)
[2022-08-27 06:28] LABS: HEMATOCRIT 37.5 % (42.0-52.0); MEAN CORPUSCULAR HGB CONC 31.7 g/dl (33.0-37.0); MEAN PLATELET VOLUME 9.9 fl (9.6-12.3); PLATELET COUNT AUTOMATED 313 10*3/uL (130-400); RED BLOOD COUNT 4.41 10*6/uL (4.50-5.90); RED CELL DISTRI WIDTH 15.4 % (0-14.5); WHITE BLOOD COUNT 6.8 10*3/uL (4.8-10.8)
[2022-08-27 06:36] LABS: MANUAL DIFF REFLEX YES
[2022-08-27 07:13] LABS: ATYPICAL LYMPHS 2 % (0-0); TOTAL CELLS COUNTED 100 #CELLS
[2022-08-27 07:15] LABS: OVALOCYTES FEW; POLYCHROMASIA SLIGHT; SCHISTOCYTES FEW; TOXIC GRANULATION SLIGHT; VACUOLATION OF NEUTROPHILS SLIGHT
[2022-08-27 07:16] LABS: BURR CELLS FEW; PLATELET SUFFICIENCY NORMAL (NORMAL)
[2022-08-27 08:00] VITALS: BP 165/96
[2022-08-27 12:00] VITALS: BP 170/84
[2022-08-27 16:00] VITALS: BP 160/84
[2022-08-27 20:00] VITALS: BP 156/81
[2022-08-28] VITALS: BP 129/88
[2022-08-28 06:11] LABS: BUN 13 mg/dl (7-24); CHLORIDE 106 mmol/L (98-107); CREATININE 0.53 mg/dL (0.70-1.30); POTASSIUM 3.8 mmol/L (3.5-5.1); SODIUM 139 mmol/L (136-145)
[2022-08-28 06:18] LABS: HEMATOCRIT 39.1 % (42.0-52.0); MEAN CELL VOLUME 84.1 fl (80.0-94.0); MEAN CORPUSCULAR HGB 26.5 pg (27.0-31.0); MEAN CORPUSCULAR HGB CONC 31.5 g/dl (33.0-37.0); MEAN PLATELET VOLUME 9.8 fl (9.6-12.3); PLATELET COUNT AUTOMATED 354 10*3/uL (130-400); RED BLOOD COUNT 4.65 10*6/uL (4.50-5.90); RED CELL DISTRI WIDTH 15.2 % (0-14.5); WHITE BLOOD COUNT 6.1 10*3/uL (4.8-10.8)
[2022-08-28 06:25] LABS: MANUAL DIFF REFLEX YES
[2022-08-28 07:33] LABS: ATYPICAL LYMPHS 2 % (0-0); TOTAL CELLS COUNTED 100 #CELLS
[2022-08-28 07:34] LABS: PLATELET SUFFICIENCY NORMAL (NORMAL)
[2022-08-28 07:35] LABS: BURR CELLS FEW; OVALOCYTES FEW; SCHISTOCYTES FEW
[2022-08-28 08:00] VITALS: BP 164/86
[2022-08-28 12:00] VITALS: BP 129/72
[2022-08-28 16:00] VITALS: BP 150/82
[2022-08-28 20:00] VITALS: BP 152/89
[2022-08-29] VITALS: BP 142/71
[2022-08-29 09:21] VITALS: BP 138/72
[2022-08-29 12:00] VITALS: BP 142/74
[2022-08-29 16:00] VITALS: BP 155/89
[2022-08-29 18:33] VITALS: BP 142/85
[2022-08-30] VITALS: BP 161/94
[2022-08-30 04:00] VITALS: BP 139/88
[2022-08-30 04:55] LABS: HEMATOCRIT 38.7 % (42.0-52.0); MEAN CELL VOLUME 83.4 fl (80.0-94.0); MEAN CORPUSCULAR HGB 26.9 pg (27.0-31.0); MEAN CORPUSCULAR HGB CONC 32.3 g/dl (33.0-37.0); MEAN PLATELET VOLUME 9.4 fl (9.6-12.3); PLATELET COUNT AUTOMATED 348 10*3/uL (130-400); RED BLOOD COUNT 4.64 10*6/uL (4.50-5.90); RED CELL DISTRI WIDTH 15.2 % (0-14.5); WHITE BLOOD COUNT 7.2 10*3/uL (4.8-10.8)
[2022-08-30 05:00] LABS: MANUAL DIFF REFLEX YES
[2022-08-30 05:13] LABS: BUN 13 mg/dl (7-24); CHLORIDE 107 mmol/L (98-107); CREATININE 0.58 mg/dL (0.70-1.30); POTASSIUM 4.1 mmol/L (3.5-5.1); SODIUM 138 mmol/L (136-145)
[2022-08-30 07:30] LABS: ATYPICAL LYMPHS 2 % (0-0); POLYCHROMASIA SLIGHT; TOTAL CELLS COUNTED 100 #CELLS
[2022-08-30 07:31] LABS: BURR CELLS MODERATE; OVALOCYTES FEW; PLATELET SUFFICIENCY NORMAL (NORMAL)
[2022-08-30 07:32] LABS: SCHISTOCYTES FEW
[2022-08-30 08:00] VITALS: BP 158/81
[2022-08-30 12:00] VITALS: BP 147/79
[2022-08-30 15:25] VITALS: BP 141/82
[2022-08-30 20:00] VITALS: BP 137/83
[2022-08-31] VITALS: BP 118/78
[2022-08-31 04:00] VITALS: BP 135/81
[2022-08-31 06:06] LABS: BUN 20 mg/dl (7-24); CHLORIDE 107 mmol/L (98-107); CREATININE 0.71 mg/dL (0.70-1.30); POTASSIUM 3.9 mmol/L (3.5-5.1); SGPT/ALT 17 U/L (12-78); SODIUM 138 mmol/L (136-145)
[2022-08-31 06:07] LABS: ALKALINE PHOSPHATASE 82 U/L (45-117); HEMATOCRIT 39.1 % (42.0-52.0); MEAN CELL VOLUME 84.4 fl (80.0-94.0); MEAN CORPUSCULAR HGB 27.2 pg (27.0-31.0); MEAN CORPUSCULAR HGB CONC 32.2 g/dl (33.0-37.0); MEAN PLATELET VOLUME 9.6 fl (9.6-12.3); PLATELET COUNT AUTOMATED 370 10*3/uL (130-400); RED BLOOD COUNT 4.63 10*6/uL (4.50-5.90); RED CELL DISTRI WIDTH 15.1 % (0-14.5); TOTAL PROTEIN 6.3 gm/dL (6.4-8.2); WHITE BLOOD COUNT 7.3 10*3/uL (4.8-10.8)
[2022-08-31 06:11] LABS: MANUAL DIFF REFLEX YES
[2022-08-31 06:47] LABS: OVALOCYTES FEW; POLYCHROMASIA SLIGHT; TOTAL CELLS COUNTED 100 #CELLS
[2022-08-31 06:48] LABS: BURR CELLS FEW; PLATELET SUFFICIENCY NORMAL (NORMAL); ROULEAUX SLIGHT; SCHISTOCYTES FEW
[2022-08-31 08:00] VITALS: BP 132/82
[2022-08-31 11:13] VITALS: BP 133/76
[2022-08-31 14:25] VITALS: BP 130/72
[2022-08-31] MEDS ORDERED: MUCINEX ER600 MG PO (15:07)
[2022-08-31] MEDS ORDERED: ATORVASTATIN CA40 M1 PO (15:07)
[2022-08-31] MEDS ORDERED: SOLU-MEDRO40 MG/1 ML IV (15:07)
[2022-08-31] MEDS ORDERED: ENOXAPARIN60 MG/0.2 SC (15:07)
[2022-08-31] MEDS ORDERED: ASPIRIN ADULT L81 M2 PO (15:07)
[2022-08-31 16:13] VITALS: BP 128/67
== END 2022-08-31 17:36 | disposition short-term general hospital (02) | DRG 871 ==
LOC: ED 20:44 → EDHOLD 08-26 02:28 → 4E 08-26 02:28 → 5E 08-28 22:32 → ICCU 08-29 18:33
PROVIDERS: Emergency Medicine; Internal Medicine; Student in an Organized Health Care Education/Training Program; ADMIT Internal Medicine; ATTEND Internal Medicine
DX: A41.9 Sepsis, unspecified organism (principal); E43 Unspecified severe protein-calorie malnutrition; I21.4 Non-ST elevation (NSTEMI) myocardial infarction; J18.9 Pneumonia, unspecified organism; J96.01 Acute respiratory failure with hypoxia; I50.32 Chronic diastolic (congestive) heart failure; J44.1 Chronic obstructive pulmonary disease with (acute) exacerbation; J44.0 Chronic obstructive pulmonary disease with (acute) lower respiratory infection; I44.2 Atrioventricular block, complete; Z68.1 Body mass index [BMI] 19.9 or less, adult; E55.9 Vitamin D deficiency, unspecified; K21.9 Gastro-esophageal reflux disease without esophagitis; D64.9 Anemia, unspecified; E87.8 Other disorders of electrolyte and fluid balance, not elsewhere classified; M94.0 Chondrocostal junction syndrome [Tietze]; R65.20 Severe sepsis without septic shock; I25.118 Atherosclerotic heart disease of native coronary artery with other forms of angina pectoris; I11.0 Hypertensive heart disease with heart failure; E78.5 Hyperlipidemia, unspecified; M19.012 Primary osteoarthritis, left shoulder; M19.011 Primary osteoarthritis, right shoulder; F43.10 Post-traumatic stress disorder, unspecified; Z96.651 Presence of right artificial knee joint; G47.00 Insomnia, unspecified; R73.9 Hyperglycemia, unspecified; Z89.612 Acquired absence of left leg above knee; Z95.5 Presence of coronary angioplasty implant and graft; Z86.14 Personal history of Methicillin resistant Staphylococcus aureus infection; Z88.6 Allergy status to analgesic agent; Z98.41 Cataract extraction status, right eye; Z98.42 Cataract extraction status, left eye; Z90.49 Acquired absence of other specified parts of digestive tract; Z79.899 Other long term (current) drug therapy; Z82.49 Family history of ischemic heart disease and other diseases of the circulatory system; Z83.3 Family history of diabetes mellitus; Z82.3 Family history of stroke

== ENCOUNTER 2022-12-15 11:29 | Emergency (ER) | payer OTHER ==
[~2022-12-15] VITALS: Wt 83.9 kg
[~2022-12-15 11:29] MED LIST changes: +ENOXAPARIN60 MG/0.2 SC; +MUCINEX ER600 MG PO; +SOLU-MEDRO40 MG/1 ML IV
[2022-12-15 11:38] VITALS: BP 145/95
[2022-12-15 12:24] LABS: BASO % 0.4 % (0.0-1.0); EOS # 0.3 10*3/uL (0.0-0.4); HEMATOCRIT 39.6 % (42.0-52.0); LYMPH # 1.5 10*3/uL (1.3-4.4); LYMPH % 18.7 % (27.0-41.0); MEAN CORPUSCULAR HGB 26.3 pg (27.0-31.0); MEAN CORPUSCULAR HGB CONC 32.1 g/dl (33.0-37.0); MONO # 0.4 10*3/uL (0.1-1.0); MONO % 5.3 % (3.0-9.0); NEUT # 5.9 10*3/uL (2.3-7.9); NEUT % 72.2 % (47.0-73.0); PLATELET COUNT AUTOMATED 343 10*3/uL (130-400); RED BLOOD COUNT 4.83 10*6/uL (4.50-5.90); RED CELL DISTRI WIDTH 15.2 % (0-14.5); WHITE BLOOD COUNT 8.2 10*3/uL (4.8-10.8)
[2022-12-15 12:58] LABS: ALKALINE PHOSPHATASE 114 U/L (46-116); BUN 11 mg/dl (9-23); CHLORIDE 108 mmol/L (98-107); POTASSIUM 3.3 mmol/L (3.4-5.1); SGPT/ALT 9 U/L (10-49); TOTAL PROTEIN 6.9 gm/dL (6.0-8.0)
[2022-12-15] MEDS ORDERED: VIBRAMYCIN100 MG PO ×2 (14:24→14:28)
== END 2022-12-15 14:31 | disposition home or self-care (01) ==
LOC: ED 11:29
PROVIDERS: Emergency Medicine
DX: J18.9 Pneumonia, unspecified organism (principal); Z88.6 Allergy status to analgesic agent; Z90.49 Acquired absence of other specified parts of digestive tract; Z98.890 Other specified postprocedural states

== ENCOUNTER 2022-12-28 14:06 | Emergency (ER) | payer OTHER ==
[~2022-12-28] VITALS: Ht 182.8 cm; Wt 81.6 kg
[2022-12-28 14:23] VITALS: BP 165/101
[2022-12-28 14:56] LABS: BASO % 0.6 % (0.0-1.0); EOS # 0.3 10*3/uL (0.0-0.4); EOS % 3.8 % (1.0-4.0); HEMATOCRIT 40.6 % (42.0-52.0); LYMPH # 1.5 10*3/uL (1.3-4.4); LYMPH % 22.3 % (27.0-41.0); MEAN CELL VOLUME 83.2 fl (80.0-94.0); MEAN CORPUSCULAR HGB 26.6 pg (27.0-31.0); MEAN PLATELET VOLUME 9.5 fl (9.6-12.3); MONO # 0.3 10*3/uL (0.1-1.0); MONO % 5.1 % (3.0-9.0); NEUT # 4.4 10*3/uL (2.3-7.9); NEUT % 67.9 % (47.0-73.0); PLATELET COUNT AUTOMATED 288 10*3/uL (130-400); RED BLOOD COUNT 4.88 10*6/uL (4.50-5.90); RED CELL DISTRI WIDTH 16.6 % (0-14.5); WHITE BLOOD COUNT 6.5 10*3/uL (4.8-10.8)
[2022-12-28 15:07] LABS: ACT PARTIAL THROMBO TIME 29.6 SECONDS (20.0-32.1); INTERNATIONAL NORM RATIO 1.1 (2.0-3.5)
[2022-12-28 15:19] LABS: ALKALINE PHOSPHATASE 124 U/L (46-116); BUN 14 mg/dl (9-23); CHLORIDE 105 mmol/L (98-107); POTASSIUM 3.5 mmol/L (3.4-5.1); SGPT/ALT 9 U/L (10-49); TOTAL PROTEIN 6.6 gm/dL (6.0-8.0)
== END 2022-12-28 16:50 | disposition left against medical advice (07) ==
LOC: ED 14:06
PROVIDERS: Family Medicine
DX: R07.89 Other chest pain (principal); I25.10 Atherosclerotic heart disease of native coronary artery without angina pectoris; D64.9 Anemia, unspecified; Z88.8 Allergy status to other drugs, medicaments and biological substances; Z88.6 Allergy status to analgesic agent; Z96.651 Presence of right artificial knee joint; Z90.49 Acquired absence of other specified parts of digestive tract; Z98.890 Other specified postprocedural states

== ENCOUNTER 2023-01-18 13:13 | Emergency (ER) | payer OTHER ==
[2023-01-18 13:17] VITALS: BP 159/95
[2023-01-18 13:34] LABS: BASO % 0.6 % (0.0-1.0); EOS # 0.2 10*3/uL (0.0-0.4); EOS % 3.7 % (1.0-4.0); HEMATOCRIT 44.6 % (42.0-52.0); LYMPH # 1.3 10*3/uL (1.3-4.4); LYMPH % 24.2 % (27.0-41.0); MEAN CELL VOLUME 81.2 fl (80.0-94.0); MEAN CORPUSCULAR HGB CONC 32.1 g/dl (33.0-37.0); MEAN PLATELET VOLUME 9.3 fl (9.6-12.3); MONO # 0.3 10*3/uL (0.1-1.0); MONO % 5.3 % (3.0-9.0); NEUT # 3.6 10*3/uL (2.3-7.9); NEUT % 65.5 % (47.0-73.0); PLATELET COUNT AUTOMATED 364 10*3/uL (130-400); RED BLOOD COUNT 5.49 10*6/uL (4.50-5.90); RED CELL DISTRI WIDTH 15.9 % (0-14.5); WHITE BLOOD COUNT 5.5 10*3/uL (4.8-10.8)
[2023-01-18 13:45] LABS: ACT PARTIAL THROMBO TIME 30.3 SECONDS (20.0-32.1); INTERNATIONAL NORM RATIO 1.1 (2.0-3.5)
[2023-01-18 13:51] LABS: ALKALINE PHOSPHATASE 123 U/L (46-116); BUN 14 mg/dl (9-23); CHLORIDE 104 mmol/L (98-107); POTASSIUM 3.5 mmol/L (3.4-5.1); SGPT/ALT 10 U/L (10-49); TOTAL PROTEIN 7.4 gm/dL (6.0-8.0)
== END 2023-01-18 15:04 | disposition home or self-care (01) ==
LOC: ED 13:13
PROVIDERS: Emergency Medicine
DX: R07.89 Other chest pain (principal); I25.10 Atherosclerotic heart disease of native coronary artery without angina pectoris; D64.9 Anemia, unspecified; Z88.6 Allergy status to analgesic agent; Z88.8 Allergy status to other drugs, medicaments and biological substances; Z98.890 Other specified postprocedural states; Z96.651 Presence of right artificial knee joint; Z90.49 Acquired absence of other specified parts of digestive tract

== ENCOUNTER 2023-04-26 14:30 | Emergency (ER) | payer OTHER ==
[~2023-04-26] VITALS: Ht 182.8 cm; Wt 70.3 kg
[~2023-04-26 14:30] MED LIST changes: +METOPROLOL SUCC25 M2 PO; +NITRO-BID1 GM T
[2023-04-26 14:54] VITALS: BP 122/71
== END 2023-04-26 15:46 | disposition home or self-care (01) ==
LOC: ED 14:30
DX: L60.8 Other nail disorders (principal); Z88.6 Allergy status to analgesic agent; Z88.8 Allergy status to other drugs, medicaments and biological substances; Z98.890 Other specified postprocedural states; Z98.42 Cataract extraction status, left eye; Z98.41 Cataract extraction status, right eye; Z90.49 Acquired absence of other specified parts of digestive tract; Z96.651 Presence of right artificial knee joint; Z72.0 Tobacco use

== ENCOUNTER 2023-08-21 10:42 | Emergency (ER) | payer OTHER ==
[~2023-08-21 10:42] MED LIST changes: +CLOPIDOGREL75 MG PO; +COL-RITE100 M1 PO; +CYMBALTA20 M1 PO; +EUCERIN T; +IMDUR SA30 MG PO; +LASIX20 MG PO; +MUCUS RELIEF400 MG PO; +TAMSULOSIN HCL0.4 MG PO
[2023-08-21 11:21] VITALS: BP 165/98
[2023-08-21 11:41] LABS: BASO % 0.4 % (0.0-1.0); EOS # 0.2 10*3/uL (0.0-0.4); EOS % 2.3 % (1.0-4.0); LYMPH # 1.4 10*3/uL (1.3-4.4); LYMPH % 20.4 % (27.0-41.0); MEAN CELL VOLUME 84.6 fl (80.0-94.0); MEAN CORPUSCULAR HGB 27.4 pg (27.0-31.0); MEAN CORPUSCULAR HGB CONC 32.3 g/dl (33.0-37.0); MONO # 0.4 10*3/uL (0.1-1.0); MONO % 5.4 % (3.0-9.0); NEUT # 4.9 10*3/uL (2.3-7.9); NEUT % 70.9 % (47.0-73.0); PLATELET COUNT AUTOMATED 306 10*3/uL (130-400); RED BLOOD COUNT 5.08 10*6/uL (4.50-5.90); WHITE BLOOD COUNT 6.9 10*3/uL (4.8-10.8)
[2023-08-21 12:06] LABS: ALKALINE PHOSPHATASE 138 U/L (46-116); BUN 12 mg/dl (9-23); CHLORIDE 107 mmol/L (98-107); SGPT/ALT 9 U/L (5-49)
[2023-08-21] MEDS ORDERED: TYLE3UD PO (12:13)
== END 2023-08-21 12:16 | disposition home or self-care (01) ==
LOC: ED 10:42
PROVIDERS: Emergency Medicine
DX: M25.561 Pain in right knee (principal); I16.0 Hypertensive urgency; I25.10 Atherosclerotic heart disease of native coronary artery without angina pectoris; D64.9 Anemia, unspecified; Z88.8 Allergy status to other drugs, medicaments and biological substances; Z88.6 Allergy status to analgesic agent; Z96.651 Presence of right artificial knee joint; Z95.5 Presence of coronary angioplasty implant and graft; Z90.49 Acquired absence of other specified parts of digestive tract; Z98.890 Other specified postprocedural states; Z72.0 Tobacco use

== ENCOUNTER 2023-11-07 02:08 | Emergency (ER) | payer OTHER ==
[~2023-11-07] VITALS: Ht 182.8 cm; Wt 83.9 kg
[~2023-11-07 02:08] MED LIST changes: +TYLE3UD PO
[2023-11-07 02:19] VITALS: BP 155/85
[2023-11-07] MEDS ORDERED: AMOXICILLIN500 M2 PO (03:00)
== END 2023-11-07 03:11 | disposition home or self-care (01) ==
LOC: ED 02:08
DX: K02.9 Dental caries, unspecified (principal); I25.10 Atherosclerotic heart disease of native coronary artery without angina pectoris; F32.A Depression, unspecified; E78.5 Hyperlipidemia, unspecified; K21.9 Gastro-esophageal reflux disease without esophagitis; I11.0 Hypertensive heart disease with heart failure; I50.30 Unspecified diastolic (congestive) heart failure; E43 Unspecified severe protein-calorie malnutrition; F41.9 Anxiety disorder, unspecified; M19.042 Primary osteoarthritis, left hand; M19.041 Primary osteoarthritis, right hand; F17.200 Nicotine dependence, unspecified, uncomplicated; Z88.6 Allergy status to analgesic agent; Z88.8 Allergy status to other drugs, medicaments and biological substances; Z88.5 Allergy status to narcotic agent; Z79.899 Other long term (current) drug therapy; Z79.82 Long term (current) use of aspirin; Z89.612 Acquired absence of left leg above knee; Z95.5 Presence of coronary angioplasty implant and graft; Z96.651 Presence of right artificial knee joint; Z90.49 Acquired absence of other specified parts of digestive tract

== ENCOUNTER 2023-11-11 12:00 | Emergency (ER) | payer OTHER ==
[~2023-11-11] VITALS: Ht 182.8 cm; Wt 81.6 kg
[~2023-11-11 12:00] MED LIST changes: +AMOXICILLIN500 M2 PO
[2023-11-11 12:08] VITALS: BP 146/89
[2023-11-11 12:48] LABS: BASO % 0.6 % (0.0-1.0); EOS # 0.1 10*3/uL (0.0-0.4); EOS % 1.3 % (1.0-4.0); HEMATOCRIT 42.7 % (42.0-52.0); LYMPH # 1.4 10*3/uL (1.3-4.4); LYMPH % 27.3 % (27.0-41.0); MEAN CELL VOLUME 84.1 fl (80.0-94.0); MEAN CORPUSCULAR HGB 25.8 pg (27.0-31.0); MEAN CORPUSCULAR HGB CONC 30.7 g/dl (33.0-37.0); MONO # 0.3 10*3/uL (0.1-1.0); MONO % 5.8 % (3.0-9.0); NEUT # 3.4 10*3/uL (2.3-7.9); NEUT % 64.6 % (47.0-73.0); PLATELET COUNT AUTOMATED 262 10*3/uL (130-400); RED BLOOD COUNT 5.08 10*6/uL (4.50-5.90); RED CELL DISTRI WIDTH 15.6 % (0-14.5); WHITE BLOOD COUNT 5.2 10*3/uL (4.8-10.8)
[2023-11-11 12:58] LABS: ACT PARTIAL THROMBO TIME 28.7 SECONDS (20.0-32.1)
[2023-11-11 13:09] LABS: ALKALINE PHOSPHATASE 139 U/L (46-116); BUN 9 mg/dl (9-23); CHLORIDE 105 mmol/L (98-107); LIPASE 21 U/L (12-53); POTASSIUM 3.5 mmol/L (3.4-5.1); SGPT/ALT 10 U/L (5-49)
[2023-11-11] MEDS ORDERED: MORPHINE Sulfate 2 MG/ML SYR IV ONE (13:10)
== END 2023-11-11 14:24 | disposition left against medical advice (07) ==
LOC: ED 12:00
PROVIDERS: Physician Assistant Medical
DX: R07.89 Other chest pain (principal); I25.10 Atherosclerotic heart disease of native coronary artery without angina pectoris; D64.9 Anemia, unspecified; Z53.29 Procedure and treatment not carried out because of patient's decision for other reasons; Z88.8 Allergy status to other drugs, medicaments and biological substances; Z88.6 Allergy status to analgesic agent; Z88.5 Allergy status to narcotic agent; Z98.890 Other specified postprocedural states; Z95.5 Presence of coronary angioplasty implant and graft; Z90.49 Acquired absence of other specified parts of digestive tract; Z96.651 Presence of right artificial knee joint; Z72.0 Tobacco use

== ENCOUNTER 2023-11-12 23:09 | Emergency (ER) | payer OTHER ==
[~2023-11-12] VITALS: Ht 182.8 cm; Wt 81.6 kg
[2023-11-12 23:27] VITALS: BP 140/87
[2023-11-13] MEDS ORDERED: Acetaminophen/Hydrocodone 5 MG/325 MG TABLET PO ONE (00:55)
== END 2023-11-13 01:13 | disposition home or self-care (01) ==
LOC: ED 23:09
DX: T87.89 Other complications of amputation stump (principal); I25.10 Atherosclerotic heart disease of native coronary artery without angina pectoris; F32.A Depression, unspecified; K21.9 Gastro-esophageal reflux disease without esophagitis; E78.5 Hyperlipidemia, unspecified; F41.9 Anxiety disorder, unspecified; I11.0 Hypertensive heart disease with heart failure; I50.30 Unspecified diastolic (congestive) heart failure; M19.012 Primary osteoarthritis, left shoulder; M19.011 Primary osteoarthritis, right shoulder; F17.210 Nicotine dependence, cigarettes, uncomplicated; Z88.6 Allergy status to analgesic agent; Z88.8 Allergy status to other drugs, medicaments and biological substances; Z88.5 Allergy status to narcotic agent; Z79.2 Long term (current) use of antibiotics; Z79.899 Other long term (current) drug therapy; Z89.612 Acquired absence of left leg above knee; Z96.651 Presence of right artificial knee joint; Y83.8 Other surgical procedures as the cause of abnormal reaction of the patient, or of later complication, without mention of misadventure at the time of the procedure

== ENCOUNTER 2023-12-11 01:30 | Emergency (ER) | payer OTHER ==
[~2023-12-11] VITALS: Ht 182.8 cm; Wt 81.6 kg
[2023-12-11 01:36] VITALS: BP 149/87
[2023-12-11 01:52] LABS: BASO % 0.4 % (0.0-1.0); EOS # 0.2 10*3/uL (0.0-0.4); EOS % 2.7 % (1.0-4.0); HEMATOCRIT 43.1 % (42.0-52.0); LYMPH # 2.1 10*3/uL (1.3-4.4); MEAN CELL VOLUME 81.2 fl (80.0-94.0); MEAN CORPUSCULAR HGB 25.2 pg (27.0-31.0); MEAN CORPUSCULAR HGB CONC 31.1 g/dl (33.0-37.0); MEAN PLATELET VOLUME 8.8 fl (9.6-12.3); MONO # 0.5 10*3/uL (0.1-1.0); MONO % 7.6 % (3.0-9.0); NEUT # 4.2 10*3/uL (2.3-7.9); PLATELET COUNT AUTOMATED 307 10*3/uL (130-400); RED BLOOD COUNT 5.31 10*6/uL (4.50-5.90); RED CELL DISTRI WIDTH 15.8 % (0-14.5); WHITE BLOOD COUNT 7.1 10*3/uL (4.8-10.8)
[2023-12-11 02:21] LABS: BUN 15 mg/dl (9-23); CHLORIDE 106 mmol/L (98-107); LIPASE 32 U/L (12-53); POTASSIUM 3.5 mmol/L (3.4-5.1)
== END 2023-12-11 03:40 | disposition home or self-care (01) ==
LOC: ED 01:30
PROVIDERS: Internal Medicine
DX: M79.604 Pain in right leg (principal); F17.210 Nicotine dependence, cigarettes, uncomplicated; Z88.8 Allergy status to other drugs, medicaments and biological substances; Z88.5 Allergy status to narcotic agent; Z88.6 Allergy status to analgesic agent; Z98.890 Other specified postprocedural states; Z95.5 Presence of coronary angioplasty implant and graft; Z96.651 Presence of right artificial knee joint; Z90.49 Acquired absence of other specified parts of digestive tract

== ENCOUNTER 2024-01-05 14:02 | Emergency (ER) | payer OTHER ==
[~2024-01-05] VITALS: Ht 185.4 cm; Wt 83.9 kg
[2024-01-05] MEDS ORDERED: Ondansetron Hydrochloride 4 MG/2 ML VIAL IV ONE (14:10)
[2024-01-05] MEDS ORDERED: SODIUM CHLORIDE 0.9% 1,000 ML IV ONE (14:10)
[2024-01-05 14:22] VITALS: BP 135/88
[2024-01-05 14:34] LABS: BASO % 0.3 % (0.0-1.0); EOS # 0.2 10*3/uL (0.0-0.4); EOS % 3.5 % (1.0-4.0); HEMATOCRIT 39.7 % (42.0-52.0); LYMPH # 1.5 10*3/uL (1.3-4.4); LYMPH % 23.4 % (27.0-41.0); MEAN CELL VOLUME 80.5 fl (80.0-94.0); MEAN CORPUSCULAR HGB 25.4 pg (27.0-31.0); MEAN CORPUSCULAR HGB CONC 31.5 g/dl (33.0-37.0); MONO # 0.3 10*3/uL (0.1-1.0); MONO % 5.4 % (3.0-9.0); NEUT # 4.2 10*3/uL (2.3-7.9); NEUT % 66.9 % (47.0-73.0); PLATELET COUNT AUTOMATED 295 10*3/uL (130-400); RED BLOOD COUNT 4.93 10*6/uL (4.50-5.90); RED CELL DISTRI WIDTH 16.6 % (0-14.5); WHITE BLOOD COUNT 6.3 10*3/uL (4.8-10.8)
[2024-01-05] MEDS ORDERED: IOHEXOL 300 MG/ML 100 ML VIAL IV ONE (14:45)
[2024-01-05 14:50] LABS: ACT PARTIAL THROMBO TIME 27.5 SECONDS (20.0-32.1)
[2024-01-05 14:58] LABS: ALKALINE PHOSPHATASE 142 U/L (46-116); BUN 13 mg/dl (9-23); CHLORIDE 104 mmol/L (98-107); ETHYL ALCOHOL < 3.0 mg/dl (<3); LIPASE 32 U/L (12-53); POTASSIUM 3.5 mmol/L (3.4-5.1); SGPT/ALT 10 U/L (5-49)
[2024-01-05 16:05] LABS: BILIRUBIN Negative (Negative); BLOOD Negative (Negative); CLARITY Clear (Clear); COLOR Yellow (Yellow); GLUCOSE Negative (Negative); KETONE Negative (Negative); LEUKO ESTERASE Trace (Negative); NITRITE Negative (Negative); SPECIFIC GRAVITY >= 1.030 (1.001-1.030)
[2024-01-05 16:30] LABS: EPITHELIAL CELLS 0-2; MUCOUS 1+; WBC 0-2 wbc/hpf (0-5)
[2024-01-05 16:37] LABS: URINE AMPHETAMINES Negative (1000ng/ml); URINE BARBITURATES Negative (200ng/ml); URINE BENZODIAZEPINES Negative (200ng/ml); URINE CANNABINOIDS (THC) Negative (50ng/ml); URINE COCAINE Negative (300ng/ml); URINE METHADONE Negative (300ng/ml); URINE OPIATES Negative (300ng/ml); URINE PHENCYCLIDINE Negative (25ng/ml)
[2024-01-05] MEDS ORDERED: MIRALAX POWDER17 G1 PO (17:13)
[2024-01-05] MEDS ORDERED: MAGNESIUM CITRATE 296 ML BOT PO ONE (17:20)
== END 2024-01-05 17:31 | disposition home or self-care (01) ==
LOC: ED 14:02
PROVIDERS: Internal Medicine
DX: K59.00 Constipation, unspecified (principal); R11.2 Nausea with vomiting, unspecified; Z88.8 Allergy status to other drugs, medicaments and biological substances; Z88.6 Allergy status to analgesic agent; Z88.5 Allergy status to narcotic agent; Z98.890 Other specified postprocedural states; Z95.5 Presence of coronary angioplasty implant and graft; Z96.651 Presence of right artificial knee joint; Z72.0 Tobacco use

== ENCOUNTER 2024-01-29 22:08 | Emergency (ER) | payer OTHER ==
[2024-01-29 22:11] VITALS: BP 161/89
[2024-01-29 22:27] LABS: BASO % 0.5 % (0.0-1.0); EOS # 0.2 10*3/uL (0.0-0.4); EOS % 3.8 % (1.0-4.0); HEMATOCRIT 37.6 % (42.0-52.0); LYMPH # 1.9 10*3/uL (1.3-4.4); LYMPH % 29.2 % (27.0-41.0); MEAN CELL VOLUME 79.7 fl (80.0-94.0); MEAN CORPUSCULAR HGB 23.9 pg (27.0-31.0); MEAN CORPUSCULAR HGB CONC 30.1 g/dl (33.0-37.0); MEAN PLATELET VOLUME 9.9 fl (9.6-12.3); MONO # 0.5 10*3/uL (0.1-1.0); MONO % 8.2 % (3.0-9.0); NEUT # 3.7 10*3/uL (2.3-7.9); NEUT % 57.8 % (47.0-73.0); PLATELET COUNT AUTOMATED 292 10*3/uL (130-400); RED BLOOD COUNT 4.72 10*6/uL (4.50-5.90); WHITE BLOOD COUNT 6.3 10*3/uL (4.8-10.8)
[2024-01-29 22:47] LABS: ALKALINE PHOSPHATASE 135 U/L (46-116); BUN 12 mg/dl (9-23); CHLORIDE 105 mmol/L (98-107); POTASSIUM 3.7 mmol/L (3.4-5.1); TOTAL PROTEIN 6.9 gm/dL (6.0-8.0)
[2024-01-29 22:48] LABS: SGPT/ALT < 7 U/L (5-49)
== END 2024-01-29 23:27 | disposition left against medical advice (07) ==
LOC: ED 22:08
PROVIDERS: Internal Medicine
DX: R07.89 Other chest pain (principal); Z53.29 Procedure and treatment not carried out because of patient's decision for other reasons; D53.9 Nutritional anemia, unspecified; E44.1 Mild protein-calorie malnutrition; I25.10 Atherosclerotic heart disease of native coronary artery without angina pectoris; J44.9 Chronic obstructive pulmonary disease, unspecified; Z68.1 Body mass index [BMI] 19.9 or less, adult; Z88.8 Allergy status to other drugs, medicaments and biological substances; Z88.6 Allergy status to analgesic agent; Z88.5 Allergy status to narcotic agent; Z98.890 Other specified postprocedural states; Z90.49 Acquired absence of other specified parts of digestive tract; Z96.651 Presence of right artificial knee joint; Z95.5 Presence of coronary angioplasty implant and graft; Z72.0 Tobacco use

== ENCOUNTER 2024-06-27 16:20 | Emergency (ER) | payer OTHER ==
[~2024-06-27] VITALS: Ht 182.8 cm; Wt 83.9 kg
[2024-06-27 16:50] LABS: BASO % 0.5 % (0.0-1.0); EOS # 0.2 10*3/uL (0.0-0.4); EOS % 3.8 % (1.0-4.0); HEMATOCRIT 35.2 % (42.0-52.0); LYMPH # 1.6 10*3/uL (1.3-4.4); LYMPH % 28.9 % (27.0-41.0); MEAN CELL VOLUME 73.8 fl (80.0-94.0); MEAN CORPUSCULAR HGB 21.6 pg (27.0-31.0); MEAN CORPUSCULAR HGB CONC 29.3 g/dl (33.0-37.0); MEAN PLATELET VOLUME 8.8 fl (9.6-12.3); MONO # 0.4 10*3/uL (0.1-1.0); MONO % 7.5 % (3.0-9.0); NEUT # 3.2 10*3/uL (2.3-7.9); NEUT % 59.1 % (47.0-73.0); PLATELET COUNT AUTOMATED 314 10*3/uL (130-400); RED BLOOD COUNT 4.77 10*6/uL (4.50-5.90); RED CELL DISTRI WIDTH 17.9 % (0-14.5); WHITE BLOOD COUNT 5.5 10*3/uL (4.8-10.8)
[2024-06-27 16:54] VITALS: BP 190/102
[2024-06-27 17:01] LABS: ACT PARTIAL THROMBO TIME 29.3 SECONDS (20.0-32.1)
[2024-06-27 17:22] LABS: ALKALINE PHOSPHATASE 145 U/L (46-116); BUN 7 mg/dl (9-23); CHLORIDE 101 mmol/L (98-107); POTASSIUM 3.6 mmol/L (3.4-5.1); SGPT/ALT 11 U/L (5-49); TOTAL PROTEIN 7.5 gm/dL (6.0-8.0)
== END 2024-06-27 16:53 | disposition left against medical advice (07) ==
LOC: ED 16:20
PROVIDERS: Nurse Practitioner Family
DX: R07.89 Other chest pain (principal); Z53.29 Procedure and treatment not carried out because of patient's decision for other reasons; Z72.0 Tobacco use; Z88.5 Allergy status to narcotic agent; Z88.6 Allergy status to analgesic agent; Z88.8 Allergy status to other drugs, medicaments and biological substances; Z90.49 Acquired absence of other specified parts of digestive tract; Z98.890 Other specified postprocedural states; Z96.651 Presence of right artificial knee joint

== ENCOUNTER 2025-05-07 17:15 | Emergency (ER) | payer OTHER ==
[~2025-05-07] VITALS: Ht 182.8 cm; Wt 81.6 kg
[~2025-05-07 17:15] MED LIST changes: +AIRSUPRA 90-810.7 GM INH; +AMITRIPTYLINE25 MG PO; +BUSPAR5 MG PO; +CARVEDILOL6.25 MG PO; +CELECOXIB200 M1 PO; +FERROUS SULFAT325 MG PO; +JARDIANCE10 MG PO; +LISINOPRIL20 MG PO; +LISINOPRIL5 MG PO; +MAGNESIUM400 M1 PO; +MUCINEX1200 M1 PO; +NALOXONE HCL4 M1 NEB; +OMNICEF300 MG PO; +PERCOCET 10-321 EACH PO; +PREDNISONE10 MG PO; +SENNA-LAX8.6 MG PO; +ZITHROMAX250 MG PO
[2025-05-07] MEDS ORDERED: AZITHROMYCIN 250 MG TAB PO ONE (17:20)
[2025-05-07] MEDS ORDERED: MAGNESIUM SULFATE 50 ML IV ONE (17:20)
[2025-05-07] MEDS ORDERED: Ondansetron Hydrochloride 4 MG/2 ML VIAL IV ONE (17:25)
[2025-05-07 17:34] LABS: BASO # 0.0 10*3/uL (0.0-0.1); BASO % 0.5 % (0.0-1.0); EOS # 0.1 10*3/uL (0.0-0.4); EOS % 2.1 % (1.0-4.0); MEAN CELL VOLUME 82.5 fl (80.0-94.0); MEAN CORPUSCULAR HGB 25.6 pg (27.0-31.0); MEAN PLATELET VOLUME 8.9 fl (9.6-12.3); MONO # 0.6 10*3/uL (0.1-1.0); MONO % 9.1 % (3.0-9.0); NEUT # 3.8 10*3/uL (2.3-7.9); NEUT % 61.8 % (47.0-73.0); NUCLEATED RED BLOOD CELL 0.0 % (0.0-0.0); NUCLEATED RED BLOOD CELL 0.0 10*3/uL (0.0-0.0); PLATELET COUNT AUTOMATED 243 10*3/uL (130-400); RED CELL DISTRI WIDTH 16.2 % (0-14.5)
[2025-05-07 17:55] LABS: BUN 11 mg/dl (9-23)
[2025-05-07] MEDS ORDERED: AVPAK AZITHROM250 M1 PO (18:31)
[2025-05-07] MEDS ORDERED: PREDNISONE20 M1 PO (18:31)
[2025-05-07] MEDS ORDERED: POTASSIUM CHLO20 ME3 PO (18:31)
[2025-05-07] MEDS ORDERED: POTASSIUM CHLORIDE 20 MEQ TAB PO ONE (18:35)
== END 2025-05-07 18:53 | disposition home or self-care (01) ==
LOC: ED 17:15
PROVIDERS: Emergency Medicine
DX: S20.211A Contusion of right front wall of thorax, initial encounter (principal); J44.1 Chronic obstructive pulmonary disease with (acute) exacerbation; E87.6 Hypokalemia; F17.210 Nicotine dependence, cigarettes, uncomplicated; Z88.1 Allergy status to other antibiotic agents; Z88.5 Allergy status to narcotic agent; Z88.6 Allergy status to analgesic agent; Z90.49 Acquired absence of other specified parts of digestive tract; Z89.612 Acquired absence of left leg above knee; W19.XXXA Unspecified fall, initial encounter; Y93.89 Activity, other specified; Y92.89 Other specified places as the place of occurrence of the external cause; Y99.8 Other external cause status

== ENCOUNTER 2025-05-18 16:26 | Emergency (ER) | payer OTHER ==
[~2025-05-18] VITALS: Ht 185.4 cm; Wt 81.6 kg
[~2025-05-18 16:26] MED LIST changes: +AVPAK AZITHROM250 M1 PO; +POTASSIUM CHLO20 ME3 PO
[2025-05-18] MEDS ORDERED: SODIUM CHLORIDE 0.9% 1,000 ML IV ONE (16:30)
[2025-05-18] MEDS ORDERED: Ondansetron Hydrochloride 4 MG/2 ML VIAL IV ONE (16:30)
[2025-05-18 16:33] VITALS: BP 158/85
[2025-05-18 17:04] LABS: BASO # 0.0 10*3/uL (0.0-0.1); BASO % 0.4 % (0.0-1.0); EOS # 0.2 10*3/uL (0.0-0.4); EOS % 3.4 % (1.0-4.0); MEAN CELL VOLUME 84.4 fl (80.0-94.0); MEAN CORPUSCULAR HGB 25.0 pg (27.0-31.0); MEAN PLATELET VOLUME 9.4 fl (9.6-12.3); MONO # 0.5 10*3/uL (0.1-1.0); MONO % 8.0 % (3.0-9.0); NEUT # 4.3 10*3/uL (2.3-7.9); NEUT % 63.6 % (47.0-73.0); NUCLEATED RED BLOOD CELL 0.0 % (0.0-0.0); NUCLEATED RED BLOOD CELL 0.0 10*3/uL (0.0-0.0); PLATELET COUNT AUTOMATED 247 10*3/uL (130-400); RED CELL DISTRI WIDTH 15.9 % (0-14.5)
[2025-05-18 17:21] LABS: BUN 20 mg/dl (9-23)
== END 2025-05-18 18:07 | disposition home or self-care (01) ==
LOC: ED 16:26
PROVIDERS: Emergency Medicine
DX: J44.1 Chronic obstructive pulmonary disease with (acute) exacerbation (principal); R07.89 Other chest pain; I25.10 Atherosclerotic heart disease of native coronary artery without angina pectoris; F17.200 Nicotine dependence, unspecified, uncomplicated; Z79.899 Other long term (current) drug therapy; Z88.6 Allergy status to analgesic agent; Z88.5 Allergy status to narcotic agent; Z90.49 Acquired absence of other specified parts of digestive tract; Z98.890 Other specified postprocedural states

== ENCOUNTER 2025-05-25 15:51 | Emergency (ER) | payer OTHER ==
[~2025-05-25] VITALS: Ht 177.8 cm; Wt 102.1 kg
[2025-05-25] MEDS ORDERED: SODIUM CHLORIDE 0.9% 1,000 ML IV ONE (16:05)
[2025-05-25] MEDS ORDERED: Ondansetron Hydrochloride 4 MG/2 ML VIAL IV ONE (16:05)
[2025-05-25 16:19] LABS: BASO # 0.0 10*3/uL (0.0-0.1); BASO % 0.1 % (0.0-1.0); EOS # 0.1 10*3/uL (0.0-0.4); EOS % 0.8 % (1.0-4.0); MEAN CELL VOLUME 82.3 fl (80.0-94.0); MEAN CORPUSCULAR HGB 25.1 pg (27.0-31.0); MEAN PLATELET VOLUME 8.9 fl (9.6-12.3); MONO # 0.2 10*3/uL (0.1-1.0); MONO % 1.9 % (3.0-9.0); NEUT # 6.9 10*3/uL (2.3-7.9); NEUT % 89.0 % (47.0-73.0); NUCLEATED RED BLOOD CELL 0.0 % (0.0-0.0); NUCLEATED RED BLOOD CELL 0.0 10*3/uL (0.0-0.0); PLATELET COUNT AUTOMATED 229 10*3/uL (130-400); RED CELL DISTRI WIDTH 15.1 % (0-14.5)
[2025-05-25 16:39] LABS: BUN 7 mg/dl (9-23); CPK 35 U/L (34-171)
[2025-05-25] MEDS ORDERED: HYDROCODONE-AC1 EAC1 PO (17:12)
[2025-05-25 17:19] VITALS: BP 150/87
== END 2025-05-25 17:29 | disposition home or self-care (01) ==
LOC: ED 15:51
PROVIDERS: Emergency Medicine
DX: M79.10 Myalgia, unspecified site (principal); J44.9 Chronic obstructive pulmonary disease, unspecified; E78.5 Hyperlipidemia, unspecified; I10 Essential (primary) hypertension; F17.200 Nicotine dependence, unspecified, uncomplicated; Z88.6 Allergy status to analgesic agent; Z88.8 Allergy status to other drugs, medicaments and biological substances; Z88.5 Allergy status to narcotic agent; Z79.899 Other long term (current) drug therapy; Z98.890 Other specified postprocedural states; Z89.612 Acquired absence of left leg above knee; Z95.5 Presence of coronary angioplasty implant and graft; Z90.49 Acquired absence of other specified parts of digestive tract